=== PATIENT | female | born 1935 | race Caucasian/White ===

== ENCOUNTER 2016-05-29 15:40 | Outpatient (CLI) | END 2016-05-29 15:41 | LOC: AMBL 15:40 | PROVIDERS: ATTEND Emergency Medicine | DX: S09.90XA Unspecified injury of head, initial encounter (principal); W01.0XXA Fall on same level from slipping, tripping and stumbling without subsequent striking against object, initial encounter; Y92.000 Kitchen of unspecified non-institutional (private) residence as the place of occurrence of the external cause ==

== ENCOUNTER 2016-11-15 10:43 | Inpatient (IN) ==
[2016-11-15 11:21] VITALS: BMI 28.0
[2016-11-15 11:59] LABS: BASOPHILS % (AUTO) 0.5 % (0.0-3.0); EOSINOPHILS # (AUTO) 0.1 K/ul (0.0-0.7); HEMATOCRIT 37.8 % (37.0-47.0); HEMOGLOBIN 12.4 g/dl (12.0-16.0); IMMATURE GRANULOCYTE % (AUTO) 0.4 % (0.0-5.0); LYMPHOCYTES # (AUTO) 1.5 K/uL (0.60-3.4); LYMPHOCYTES % (AUTO) 17.9 (10.0-50.0); MEAN CORPUSCULAR HGB CONC 32.8 (31.8-35.4); MEAN CORPUSCULAR VOLUME 91.5 fl (81.0-99.0); MONOCYTES # (AUTO) 0.9 K/uL (0.4-2.0); MONOCYTES % (AUTO) 10.6 (0-10); NEUTROPHILS # (AUTO) 5.7 K/ul (2.0-6.9); NEUTROPHILS % (AUTO) 69.6; PLATELET COUNT 136 10^3/uL (140-440); RED BLOOD COUNT 4.13 10^6/ul (4.20-5.40); WHITE BLOOD COUNT 8.22 K/ul (4.6-10.2)
[2016-11-15] MEDS: DEXTROSE 5%-1/2NS IV SOLUTION 1,000 ML IV SCH (12:07)
[2016-11-15 13:09] LABS: ALBUMIN 3.1 g/dL (3.4-5.0); ALBUMIN/GLOBULIN RATIO 0.86; ANION GAP 13.6; BILIRUBIN,TOTAL 1.3 mg/dL (0.00-1.20); BUN/CREATININE RATIO 13.1; CALCIUM 9.3 mg/dL (8.2-10.2); CREATININE 1.45 mg/dL (0.60-1.30); POTASSIUM 3.6 mmol/L (3.5-5.10); TOTAL PROTEIN 6.7 g/dL (5.8-8.1)
[2016-11-15] MEDS: ZESTRIL PO SCH (13:42)
[2016-11-15] MEDS: DECADRON 4 MG/ML SDV IM SCH (13:42)
[2016-11-15] MEDS: TORADOL IVP SCH ×2 (13:42→23:29)
[2016-11-15] MEDS: LEVAQUIN 500 MG in PREMIX 100 ML D5W 1 BAG IV SCH (13:42)
--- NOTE | 2016-11-15 15:37 | DI ---
EXAM: Two views of the chest. History: Cough. Findings: Heart is enlarged. Hiatal hernia. No definite acute infiltrates. No appreciable pleural fluid and no pneumothorax. Atherosclerotic vascular calcifications. Severe compression deformity o f L1. Impression: 1. Cardiomegaly without evidence for pulmonary edema. 2. Hiatal hernia. 3. Severe compression deformity of L1.
--- NOTE | 2016-11-15 16:08 | DI ---
EXAM: Three views of the lumbar spine. History: Lower back pain. Findings: Osteopenia. Atherosclerotic vascular calcifications. 2 mm anterolisthesis of L3 on L4. 1 mm anterolisthesis of L4 on L5. Age indeterminate severe compression fracture of L1. Question mil d compression fracture of T12. Moderate degenerative disc disease at L4-L5. Mild to moderate disc s pace narrowing seen elsewhere. Cholecystectomy clips. Large amount colonic stool. Impression: 1. Age indeterminate compression fractures of T12 and L1. 2. Osteopenia. 3. Degenerative changes. 4. Large amount colonic stool
[2016-11-15 22:29] LABS: ADD URINE MICROSCOPIC YES; BILIRUBIN,URINE Negative (NEGATIVE); KETONES,URINE Negative (NEGATIVE); LEUKOCYTE ESTERASE ,URINE Negative (NEGATIVE); NITRITE,URINE Negative (NEGATIVE); PH,URINE 7.5 (5-9); PROTEIN,URINE Negative (NEGATIVE); URINE, BLOOD Trace-intact (NEGATIVE)
[2016-11-15] MEDS: NEURONTIN PO SCH (23:29)
[2016-11-16] MEDS: DEXTROSE 5%-1/2NS IV SOLUTION 1,000 ML IV SCH (01:41)
[2016-11-16] MEDS: PRILOSEC PO SCH (05:46)
[2016-11-16] MEDS: LASIX TAB PO SCH (05:46)
[2016-11-16] MEDS: SYNTHROID PO SCH (05:46)
[2016-11-16 06:13] LABS: ALBUMIN 3.3 g/dL (3.4-5.0); ALBUMIN/GLOBULIN RATIO 0.7; ANION GAP 18.6; BILIRUBIN,TOTAL 0.97 mg/dL (0.00-1.20); BUN/CREATININE RATIO 12.69; CALCIUM 9.8 mg/dL (8.2-10.2); CREATININE 1.26 mg/dL (0.60-1.30); POTASSIUM 4.6 mmol/L (3.5-5.10)
[2016-11-16 06:26] LABS: BASOPHILS % (AUTO) 0.3 % (0.0-3.0); EOSINOPHILS % (AUTO) 0.1 % (0.0-7.0); HEMOGLOBIN 14.2 g/dl (12.0-16.0); IMMATURE GRANULOCYTE % (AUTO) 0.6 % (0.0-5.0); LYMPHOCYTES # (AUTO) 1.1 K/uL (0.60-3.4); LYMPHOCYTES % (AUTO) 13.5 (10.0-50.0); MEAN CORPUSCULAR HEMOGLOBIN 30.5 pg (27.0-31.0); MEAN CORPUSCULAR HGB CONC 33.8 (31.8-35.4); MEAN CORPUSCULAR VOLUME 90.3 fl (81.0-99.0); MONOCYTES # (AUTO) 0.7 K/uL (0.4-2.0); MONOCYTES % (AUTO) 9.3 (0-10); NEUTROPHILS % (AUTO) 76.2; PLATELET COUNT 151 10^3/uL (140-440); RED BLOOD COUNT 4.65 10^6/ul (4.20-5.40); WHITE BLOOD COUNT 7.93 K/ul (4.6-10.2)
[2016-11-16] MEDS ORDERED: EFFEXOR PO SCH (09:00)
[2016-11-16] MEDS ORDERED: NON-FORMULARY MEDICATION (Lisinopril [Zestril] 2.5 MG) PO SCH ×22 (09:00)
[2016-11-16] MEDS ORDERED: NON-FORMULARY MEDICATION (Cholecalciferol (Vitamin D3) [Vitamin D3] 5,000 UNITS) PO SCH (09:00)
[2016-11-16] MEDS ORDERED: NON-FORMULARY MEDICATION (Multivitamin [Multi-Vitamin Daily] 1 TAB) PO SCH (09:00)
[2016-11-16] MEDS ORDERED: NON-FORMULARY MEDICATION (Venlafaxine Hcl 75 MG) PO SCH (09:00)
[2016-11-16] MEDS: DECADRON 4 MG/ML SDV IM SCH (09:16)
[2016-11-16] MEDS: [UNRECOGNIZED DRUG - OTHER] PO SCH (09:16)
[2016-11-16] MEDS: EFFEXOR XR PO SCH (09:17)
[2016-11-16] MEDS: VITAMIN D PO SCH (09:18)
[2016-11-16] MEDS: MULTIVITAMIN PO SCH (09:18)
[2016-11-16] MEDS: ULTRAM PO SCH (09:20)
[2016-11-16] MEDS: NEURONTIN PO SCH ×2 (09:20→20:26)
[2016-11-16] MEDS: ZESTRIL PO SCH (09:20)
[2016-11-16] MEDS: TRADJENTA PO SCH (09:20)
[2016-11-16] MEDS: TORADOL IVP SCH ×2 (09:21→20:27)
[2016-11-16] MEDS ORDERED: LEVAQUIN 100 ML IV ONE (09:29)
[2016-11-16] MEDS: LEVAQUIN 500 MG in PREMIX 100 ML D5W 1 BAG IV SCH (09:45)
[2016-11-16] MEDS: HUMULIN R SUBCUT PRN ×3 (11:29→20:25)
[2016-11-17 05:22] LABS: BASOPHILS % (AUTO) 0.2 % (0.0-3.0); EOSINOPHILS # (AUTO) 0.1 K/ul (0.0-0.7); EOSINOPHILS % (AUTO) 0.4 % (0.0-7.0); HEMATOCRIT 37.8 % (37.0-47.0); HEMOGLOBIN 12.8 g/dl (12.0-16.0); IMMATURE GRANULOCYTE % (AUTO) 0.6 % (0.0-5.0); LYMPHOCYTES # (AUTO) 2.1 K/uL (0.60-3.4); LYMPHOCYTES % (AUTO) 18.9 (10.0-50.0); MEAN CORPUSCULAR HEMOGLOBIN 30.3 pg (27.0-31.0); MEAN CORPUSCULAR HGB CONC 33.9 (31.8-35.4); MEAN CORPUSCULAR VOLUME 89.4 fl (81.0-99.0); MONOCYTES # (AUTO) 1.1 K/uL (0.4-2.0); MONOCYTES % (AUTO) 9.8 (0-10); NEUTROPHILS % (AUTO) 70.1; PLATELET COUNT 155 10^3/uL (140-440); RED BLOOD COUNT 4.23 10^6/ul (4.20-5.40); WHITE BLOOD COUNT 11.35 K/ul (4.6-10.2)
[2016-11-17 05:54] LABS: ALBUMIN/GLOBULIN RATIO 0.86; ANION GAP 14.6; BILIRUBIN,TOTAL 0.87 mg/dL (0.00-1.20); BUN/CREATININE RATIO 17.64; CALCIUM 10.6 mg/dL (8.2-10.2); CREATININE 1.36 mg/dL (0.60-1.30); POTASSIUM 3.6 mmol/L (3.5-5.10); TOTAL PROTEIN 6.5 g/dL (5.8-8.1)
[2016-11-17] MEDS: PRILOSEC PO SCH (06:10)
[2016-11-17] MEDS: SYNTHROID PO SCH (06:10)
[2016-11-17] MEDS: LASIX TAB PO SCH (06:10)
[2016-11-17] MEDS: HUMULIN R SUBCUT PRN ×4 (06:40→20:37)
[2016-11-17] MEDS: LEVAQUIN 500 MG in PREMIX 100 ML D5W 1 BAG IV SCH (08:55)
[2016-11-17] MEDS: NEURONTIN PO SCH ×2 (08:55→20:31)
[2016-11-17] MEDS: TRADJENTA PO SCH (08:55)
[2016-11-17] MEDS: ULTRAM PO SCH (08:55)
[2016-11-17] MEDS: EFFEXOR XR PO SCH (08:56)
[2016-11-17] MEDS: MULTIVITAMIN PO SCH (08:56)
[2016-11-17] MEDS: ZESTRIL PO SCH (08:56)
[2016-11-17] MEDS: VITAMIN D PO SCH (08:56)
[2016-11-17] MEDS: TORADOL IVP SCH ×2 (08:56→20:30)
[2016-11-17] MEDS: DECADRON 4 MG/ML SDV IM SCH (08:57)
[2016-11-17] MEDS: [UNRECOGNIZED DRUG - OTHER] PO SCH (10:33)
[2016-11-17] MEDS: NAMENDA PO SCH (20:31)
[2016-11-18 05:00] LABS: BASOPHILS % (AUTO) 0.3 % (0.0-3.0); EOSINOPHILS % (AUTO) 0.2 % (0.0-7.0); HEMOGLOBIN 12.4 g/dl (12.0-16.0); IMMATURE GRANULOCYTE % (AUTO) 0.8 % (0.0-5.0); LYMPHOCYTES # (AUTO) 2.4 K/uL (0.60-3.4); LYMPHOCYTES % (AUTO) 20.2 (10.0-50.0); MEAN CORPUSCULAR HEMOGLOBIN 29.8 pg (27.0-31.0); MEAN CORPUSCULAR HGB CONC 33.5 (31.8-35.4); MEAN CORPUSCULAR VOLUME 88.9 fl (81.0-99.0); MONOCYTES # (AUTO) 1.1 K/uL (0.4-2.0); MONOCYTES % (AUTO) 9.4 (0-10); NEUTROPHILS # (AUTO) 8.1 K/ul (2.0-6.9); NEUTROPHILS % (AUTO) 69.1; PLATELET COUNT 157 10^3/uL (140-440); RED BLOOD COUNT 4.16 10^6/ul (4.20-5.40); WHITE BLOOD COUNT 11.71 K/ul (4.6-10.2)
[2016-11-18 05:21] LABS: ALBUMIN 2.9 g/dL (3.4-5.0); ALBUMIN/GLOBULIN RATIO 0.78; ANION GAP 14.9; BILIRUBIN,TOTAL 0.68 mg/dL (0.00-1.20); BUN/CREATININE RATIO 22.43; CALCIUM 10.3 mg/dL (8.2-10.2); CREATININE 1.56 mg/dL (0.60-1.30); POTASSIUM 3.9 mmol/L (3.5-5.10); TOTAL PROTEIN 6.6 g/dL (5.8-8.1)
[2016-11-18] MEDS: LASIX TAB PO SCH (06:13)
[2016-11-18] MEDS: PRILOSEC PO SCH (06:13)
[2016-11-18] MEDS: SYNTHROID PO SCH (06:13)
[2016-11-18] MEDS: HUMULIN R SUBCUT PRN ×4 (06:14→21:45)
[2016-11-18] MEDS: [UNRECOGNIZED DRUG - OTHER] PO SCH (08:06)
[2016-11-18] MEDS: LEVAQUIN 500 MG in PREMIX 100 ML D5W 1 BAG IV SCH (08:06)
[2016-11-18] MEDS: ZESTRIL PO SCH (08:07)
[2016-11-18] MEDS: ARICEPT PO SCH (08:07)
[2016-11-18] MEDS: ULTRAM PO SCH (08:07)
[2016-11-18] MEDS: DECADRON 4 MG/ML SDV IM SCH (08:08)
[2016-11-18] MEDS: VITAMIN D PO SCH (08:08)
[2016-11-18] MEDS: TRADJENTA PO SCH (08:08)
[2016-11-18] MEDS: NEURONTIN PO SCH ×2 (08:08→20:12)
[2016-11-18] MEDS: EFFEXOR XR PO SCH (08:08)
[2016-11-18] MEDS: TORADOL IVP SCH ×2 (08:08→20:36)
[2016-11-18] MEDS: MULTIVITAMIN PO SCH (08:08)
--- NOTE | 2016-11-18 12:48 | MRI ---
EXAM: MRI brain without IV contrast. DATE: 18 November 2016. HISTORY: Dementia. TECHNIQUE: Sagittal T1W, axial T2W, axial FLAIR, axial T1W, axial DWI, and coronal T2W GRE sequences of the brain were obtained using 1.2 Casi magnet. No IV contrast. COMPARISON: None. FINDINGS: The ventricles, cisterns, and sulci are commensurately enlarged due to involutional change . No No midline shift, mass effect or abnormal extra-axial fluid collection is apparent. No acute infarct, hemorrhage or neoplasm is identified. Small/moderate confluent rim of T2W/FLAIR hyperintens ity is observed in the white matter abutting each lateral ventricle. Multiple 2-12 mm, T2W/FLAIR emelyn ght foci are scattered within the weber radiata, centrum semiovale, and subcortical white matter renetta aterally. A T2W bright, FLAIR/T1W dark, 7 x 2.5 mm focus in the left frontal centrum semiovale is co nsistent with an old infarct. Similar 4 x 1.5 mm focus is seen within the posterior aspect of the ri ght putamen. Prominent Virchow-Panda spaces are seen within the subcortical white matter of both cer ebral hemispheres. The aguilar - white matter differentiation is normal. Several tiny areas of slight FLAIR hyperintensity within the gaby are noted on axial images. The 7th/8th cranial nerve complexes, cerebellopontine angles, and visible cervical spinal cord are normal. There is no cerebellar tonsil lar ectopia. The pituitary gland is normal in size. A T1W bright, 4 x 4.6 mm focus observed at the superior margin of the pituitary gland near the infundibulum on the sagittal image #11 is an unexpect ed finding. Corpus callosum is normal in size and configuration. Flow voids are present in the noelle r intracranial arteries and in the dural venous sinuses. No aneurysm, AVM or dural venous sinus thro mbosis is apparent. Appearance of the lens of each eye suggests prior cataract surgery. No other or bit abnormality is identified. There appears to be limited pneumatization of mastoid air cells bilat erally. The pneumatized mastoid air cells are unremarkable. There is no acute sinusitis. Bilateral parotid gland fatty infiltration is demonstrated. No neck mass or lymphadenopathy is detected. No calvarial neoplasm or acute fracture is evident. A 1.2 [address]lux[address] of CT relative to C3 is evident. IMPRESSIONS: Unexpected findin. Finding suspicious for pituitary / infundibulum lesion - not well visualized or fully characterized. Recommend dedicated pituitary MRI. 2. No acute infarct, hemorrhage, intra-axial mass or hydrocephalus. 3. 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 4. Mild/moderate cerebral and mild cerebellar atrophy. 5. Marked supratentorial and minor brainstem white matter changes - likely small vessel disease or c hronic hypertensive encephalopathy. Minor C2-3 subluxation.
[2016-11-18] MEDS: NAMENDA PO SCH (20:12)
[2016-11-19] MEDS: DEXTROSE 5%-1/2NS IV SOLUTION 1,000 ML IV SCH ×4 (03:06→21:16)
[2016-11-19 05:30] LABS: BASOPHILS % (AUTO) 0.3 % (0.0-3.0); EOSINOPHILS # (AUTO) 0.1 K/ul (0.0-0.7); EOSINOPHILS % (AUTO) 0.6 % (0.0-7.0); HEMATOCRIT 36.7 % (37.0-47.0); HEMOGLOBIN 12.3 g/dl (12.0-16.0); IMMATURE GRANULOCYTE % (AUTO) 0.8 % (0.0-5.0); LYMPHOCYTES # (AUTO) 2.4 K/uL (0.60-3.4); LYMPHOCYTES % (AUTO) 20.7 (10.0-50.0); MEAN CORPUSCULAR HGB CONC 33.5 (31.8-35.4); MEAN CORPUSCULAR VOLUME 89.5 fl (81.0-99.0); MONOCYTES # (AUTO) 1.2 K/uL (0.4-2.0); MONOCYTES % (AUTO) 10.7 (0-10); NEUTROPHILS # (AUTO) 7.7 K/ul (2.0-6.9); NEUTROPHILS % (AUTO) 66.9; PLATELET COUNT 152 10^3/uL (140-440); WHITE BLOOD COUNT 11.52 K/ul (4.6-10.2)
[2016-11-19] MEDS: SYNTHROID PO SCH (05:47)
[2016-11-19] MEDS: LASIX TAB PO SCH (05:48)
[2016-11-19] MEDS: PRILOSEC PO SCH (05:48)
[2016-11-19 05:53] LABS: ALBUMIN 2.7 g/dL (3.4-5.0); ALBUMIN/GLOBULIN RATIO 0.96; ANION GAP 11.4; BILIRUBIN,TOTAL 0.71 mg/dL (0.00-1.20); BUN/CREATININE RATIO 22.36; CALCIUM 9.1 mg/dL (8.2-10.2); CREATININE 1.52 mg/dL (0.60-1.30); POTASSIUM 3.4 mmol/L (3.5-5.10); TOTAL PROTEIN 5.5 g/dL (5.8-8.1)
[2016-11-19] MEDS ORDERED: K-DUR PO STA (08:08)
[2016-11-19] MEDS: LEVAQUIN 500 MG in PREMIX 100 ML D5W 1 BAG IV SCH (09:10)
[2016-11-19] MEDS: VITAMIN D PO SCH (09:10)
[2016-11-19] MEDS: ULTRAM PO SCH (09:10)
[2016-11-19] MEDS: MULTIVITAMIN PO SCH (09:11)
[2016-11-19] MEDS: TRADJENTA PO SCH (09:11)
[2016-11-19] MEDS: ZESTRIL PO SCH (09:11)
[2016-11-19] MEDS: ARICEPT PO SCH (09:11)
[2016-11-19] MEDS: EFFEXOR XR PO SCH (09:11)
[2016-11-19] MEDS: TORADOL IVP SCH ×2 (09:12→20:07)
[2016-11-19] MEDS: NEURONTIN PO SCH ×2 (09:12→20:11)
[2016-11-19] MEDS: DECADRON 4 MG/ML SDV IM SCH (09:12)
[2016-11-19] MEDS: [UNRECOGNIZED DRUG - OTHER] PO SCH (09:13)
[2016-11-19] MEDS: HUMULIN R SUBCUT PRN ×3 (11:38→20:10)
--- NOTE | 2016-11-19 13:46 | PCM.PROG ---
Attending Provider: ATTENDING PROVIDER: Dr. ALEXANDRO DUMONT This patient is seen with Essence Carlos, Nurse Practitioner DATE OF SERVICE: 11/19/16 SUBJECTIVE: This 80 year old WHITE/ F was hospitalized 11/15/16. The patient is sitting in chair, is oriented to person this morning. She slept well last night and is scheduled to have MRI dedicated to pituitary today pending kidney function. The patient's son is in the room. REVIEW OF SYSTEMS: CONSTITUTIONAL: Generalized weakness. No night sweats. No fever or chills. HEENT: Eyes: No visual changes. No eye pain. No eye discharge. ENT: No runny nose. No epistaxis. No sinus pain. No odynophagia. No congestion. RESPIRATORY: No cough, no congestion. No hemoptysis. No shortness of breath. CARDIOVASCULAR: No angina symptoms. No CHF symptoms. No atypical chest pain for CAD. No palpitations. No orthopnea.. GASTROINTESTINAL: No abdominal pain. No nausea or vomiting. No diarrhea or constipation. No hematemesis. No hematochezia. GENITOURINARY: No urgency. No frequency. No dysuria. No hematuria. No obstructive symptoms. No discharge. No pain. No significant abnormal bleeding. MUSCULOSKELETAL: No musculoskeletal pain; no joint swelling. NEUROLOGICAL: Awake, alert, oriented to person with confusion. No headache. No neck pain. No syncope. No seizures. No dizziness. PSYCHIATRIC: Not anxious. No depression. No suicidal thoughts. No homicidal thoughts. SKIN: No rash. No lesions. No wounds. ENDOCRINE: No unexplained weight loss. No weight gain. HEMATOLOGIC/LYMPHATIC: No anemia. No purpura. No petechiae. No prolonged or excessive bleeding. No palpable lymph nodes. PHYSICAL EXAMINATION: GENERAL: The patient is awake, alert and oriented to person but confused, sitting in chair in no distress. VITAL SIGNS: Temperature 96.8 F, Pulse 62, Respiratory Rate 20, BP 163/87, Pulse Ox 94% HEENT: Head normocephalic, atraumatic. Eyes: Extraocular muscles are intact. Pupils are equal, round and reactive to light and accommodation. Ears: No lesions. Nose appeared normal. Throat: No exudate or erythema. NECK: Supple. No JVD, no carotid bruit. No lymphadenopathy or thyromegaly. LUNGS: Diminished breath sounds bilaterally. No edema. Clear to auscultation. Percussion note normal. Chest symmetrical. HEART: S1, S2, no S3. No murmurs. No cyanosis or clubbing. No ascites. Pulses: Dorsalis pedis and posterior tibial pulses +1 to +2 both sides. ABDOMEN: Soft. Non-tender. Bowel sounds active. No CVA tenderness. No mass felt. EXTREMITIES: Chronic discoloration of lower extremities. No edema. Full range of motion of all extremities, equal. NEUROLOGIC: No focal deficit. Cranial nerves II through XII are grossly intact. No headache, no double vision or headache. SKIN: Not dry. Intact. Turgor-normal. LYMPHATIC: No palpable lymph nodes/no lymphedema. MUSCULOSKELETAL: Normal joints with no swelling. Muscle tone is normal. LAB REVIEW: 11/19/16 04:30 11/19/16 04:30 11/19/16 04:30: Sodium 139, Potassium 3.4 L, Chloride 103, Carbon Dioxide 28, Anion Gap 11.4, BUN 34 H, Creatinine 1.52 H, Estimated GFR (MDRD) 33.00, BUN/ Creatinine Ratio 22.36, Glucose 131 H, Calcium 9.1, Total Bilirubin 0.71, AST 16 , ALT 14, Alkaline Phosphatase 73, Total Protein 5.5 L, Albumin 2.7 L, Globulin 2.8, Albumin/Globulin Ratio 0.96 11/19/16 04:30: WBC 11.52 H, RBC 4.10 L, Hgb 12.3, Hct 36.7 L, MCV 89.5, MCH 30.0, MCHC 33.5, RDW Coeff of Nacho 13.9, Plt Count 152, Immature Gran % (Auto) 0.8, Neut % (Auto) 66.9, Lymph % (Auto) 20.7, Dewitt % (Auto) 10.7 H, Eos % (Auto ) 0.6, Baso % (Auto) 0.3, Immature Gran # (Auto) 0.1, Neut # 7.7 H, Lymph # 2.4 , Dewitt # 1.2, Eos # 0.1, Baso # 0.0 ASSESSMENT: 1. Hypokalemia 2. Abnormal MRI need further investigation of pituitary gland 3. Alzheimer's dementia 4. Chronic kidney disease PLAN: 1. Potassium 40 mg p.o. today and 20 mg daily after that 2. Possible MRI of pituitary today based on kidney function Plan and coordination of the patient's care discussed in the presence of Assembler Musical Equipment and nurse. CONDITION: Stable SCRIBED BY: SHELBI LAZO Kier Hand scribed while in presence of service performed by Dr. Dumont/Essence Carlos APRN on 11/19/16 ([id number])
[2016-11-19] MEDS: NAMENDA PO SCH (20:11)
[2016-11-20] MEDS: DEXTROSE 5%-1/2NS IV SOLUTION 1,000 ML IV SCH (03:24)
[2016-11-20 05:20] LABS: BASOPHILS % (AUTO) 0.3 % (0.0-3.0); EOSINOPHILS % (AUTO) 0.3 % (0.0-7.0); HEMATOCRIT 40.2 % (37.0-47.0); HEMOGLOBIN 13.3 g/dl (12.0-16.0); LYMPHOCYTES # (AUTO) 1.9 K/uL (0.60-3.4); MEAN CORPUSCULAR HEMOGLOBIN 29.8 pg (27.0-31.0); MEAN CORPUSCULAR HGB CONC 33.1 (31.8-35.4); MEAN CORPUSCULAR VOLUME 90.1 fl (81.0-99.0); MONOCYTES # (AUTO) 0.9 K/uL (0.4-2.0); MONOCYTES % (AUTO) 8.9 (0-10); NEUTROPHILS # (AUTO) 7.3 K/ul (2.0-6.9); NEUTROPHILS % (AUTO) 71.5; PLATELET COUNT 155 10^3/uL (140-440); RED BLOOD COUNT 4.46 10^6/ul (4.20-5.40); WHITE BLOOD COUNT 10.26 K/ul (4.6-10.2)
[2016-11-20] MEDS: PRILOSEC PO SCH (05:44)
[2016-11-20] MEDS: SYNTHROID PO SCH (05:44)
[2016-11-20] MEDS: LASIX TAB PO SCH (05:44)
[2016-11-20 05:45] LABS: ALBUMIN 2.9 g/dL (3.4-5.0); ALBUMIN/GLOBULIN RATIO 0.91; ANION GAP 14.8; BILIRUBIN,TOTAL 0.67 mg/dL (0.00-1.20); BUN/CREATININE RATIO 17.82; CALCIUM 9.4 mg/dL (8.2-10.2); CREATININE 1.29 mg/dL (0.60-1.30); POTASSIUM 3.8 mmol/L (3.5-5.10); TOTAL PROTEIN 6.1 g/dL (5.8-8.1)
[2016-11-20] MEDS: HUMULIN R SUBCUT PRN ×4 (05:58→21:20)
[2016-11-20] MEDS ORDERED: DEXTROSE 5%-1/2NS IV SOLUTION 1,000 ML IV SCH ×2 (08:08→18:42)
[2016-11-20] MEDS: [UNRECOGNIZED DRUG - OTHER] PO SCH (08:26)
[2016-11-20] MEDS: ARICEPT PO SCH (08:34)
[2016-11-20] MEDS: K-DUR PO SCH (08:35)
[2016-11-20] MEDS: ZESTRIL PO SCH (08:36)
[2016-11-20] MEDS: ULTRAM PO SCH (08:37)
[2016-11-20] MEDS: MULTIVITAMIN PO SCH (08:37)
[2016-11-20] MEDS: EFFEXOR XR PO SCH (08:37)
[2016-11-20] MEDS: VITAMIN D PO SCH (08:37)
[2016-11-20] MEDS: TRADJENTA PO SCH (08:37)
[2016-11-20] MEDS: NEURONTIN PO SCH ×2 (08:37→21:22)
[2016-11-20] MEDS: DECADRON 4 MG/ML SDV IM SCH (08:40)
[2016-11-20] MEDS: TORADOL IVP SCH ×2 (08:40→21:20)
--- NOTE | 2016-11-20 11:15 | PCM.PROG ---
Attending Provider: ATTENDING PROVIDER: Dr. ALEXANDRO DUMONT DATE OF SERVICE: 11/20/16 SUBJECTIVE: This 80 year old WHITE/ F was hospitalized 11/15/16. The patient is sitting on side of bed. The son, who is the POA for vazquez, Omid, is here and discussed the case with he and the patient. The patient seems to be oriented to place and person and in no distress. Denies back pain at the present time and has been able to ambulate with the assistance of a walker. Mental status is stable. REVIEW OF SYSTEMS: CONSTITUTIONAL: No night sweats. No fatigue, malaise, lethargy. No fever or chills. HEENT: Eyes: No visual changes. No eye pain. No eye discharge. ENT: No runny nose. No epistaxis. No sinus pain. No odynophagia. No congestion. RESPIRATORY: No cough, no congestion. No hemoptysis. No shortness of breath. CARDIOVASCULAR: No angina symptoms. No CHF symptoms. No atypical chest pain for CAD. No palpitations. No orthopnea.. GASTROINTESTINAL: No abdominal pain. No nausea or vomiting. No diarrhea or constipation. No hematemesis. No hematochezia. GENITOURINARY: No urgency. No frequency. No dysuria. No hematuria. No obstructive symptoms. No discharge. No pain. No significant abnormal bleeding. MUSCULOSKELETAL: No musculoskeletal pain; no joint swelling. NEUROLOGICAL: Awake, alert, oriented to place and person. No headache. No neck pain. No syncope. No seizures. No dizziness. PSYCHIATRIC: Not anxious. No depression. No suicidal thoughts. No homicidal thoughts. SKIN: No rash. No lesions. No wounds. ENDOCRINE: No unexplained weight loss. No weight gain. HEMATOLOGIC/LYMPHATIC: No anemia. No purpura. No petechiae. No prolonged or excessive bleeding. No palpable lymph nodes. PHYSICAL EXAMINATION: GENERAL: The patient is awake, alert and oriented, sitting in bed in no distress. VITAL SIGNS: Temperature 97.0 F, Pulse 69, Respiratory Rate 16, BP 158/93, Pulse Ox 96% HEENT: Head normocephalic, atraumatic. Eyes: Extraocular muscles are intact. Pupils are equal, round and reactive to light and accommodation. Ears: No lesions. Nose appeared normal. Throat: No exudate or erythema. NECK: Supple. No JVD, no carotid bruit. No lymphadenopathy or thyromegaly. LUNGS: Clear to auscultation. Percussion note normal. Chest symmetrical. HEART: S1, S2, no S3. No murmurs. No cyanosis or clubbing. No ascites. Pulses: Dorsalis pedis and posterior tibial pulses +1 to +2 both sides. ABDOMEN: Soft. Non-tender. Bowel sounds active. No CVA tenderness. No mass felt. EXTREMITIES: No edema. Full range of motion of all extremities, equal. NEUROLOGIC: No focal deficit. Cranial nerves II through XII are grossly intact. No headache, no double vision or headache. SKIN: Not dry. Intact. Turgor-normal. LYMPHATIC: No palpable lymph nodes/no lymphedema. MUSCULOSKELETAL: Normal joints with no swelling. Muscle tone is normal. LAB REVIEW: 11/20/16 04:30 11/20/16 04:30 11/20/16 04:30: Sodium 140, Potassium 3.8, Chloride 105, Carbon Dioxide 24, Anion Gap 14.8, BUN 23 H, Creatinine 1.29, Estimated GFR (MDRD) 40.00, BUN/ Creatinine Ratio 17.82, Glucose 214 H D, Calcium 9.4, Total Bilirubin 0.67, AST 16, ALT 15, Alkaline Phosphatase 82, Total Protein 6.1, Albumin 2.9 L, Globulin 3.2, Albumin/Globulin Ratio 0.91 11/20/16 04:30: WBC 10.26 H, RBC 4.46, Hgb 13.3, Hct 40.2, MCV 90.1, MCH 29.8, MCHC 33.1, RDW Coeff of Nacho 13.6, Plt Count 155, Immature Gran % (Auto) 1.0, Neut % (Auto) 71.5, Lymph % (Auto) 18.0, Mclennan % (Auto) 8.9, Eos % (Auto) 0.3, Baso % (Auto) 0.3, Immature Gran # (Auto) 0.1, Neut # 7.3 H, Lymph # 1.9, Mclennan # 0.9, Eos # 0.0, Baso # 0.0 ASSESSMENT: 1. Back pain 2. Confusion seems better. The patient is on small dose of Aricept and Namenda , which she is able to tolerate well and seems to have a positive effect on her function. 3. Abnormal CT scan related to pituitary gland and is going to be checked by MRI. 4. No signs of any hormonal disturbance in this 80-year-old so will see what report says. PLAN: 1. Decrease IV fluids to 75 mL/hr. 2. Will do MRI of brain today. Plan and coordination of the patient's care discussed in the presence of Editorial Specialist and nurse. CONDITION: Stable SCRIBED BY: SHELBI LAZO Bronze Plater scribed while in presence of service performed by Dr. ALEXANDRO DUMONT on 11/20/16 ([id number])
--- NOTE | 2016-11-20 15:15 | MRI ---
EXAM: MRI brain (pituitary) without and with IV contrast. DATE: 11/20/2016. HISTORY: Pituitary abnormality on recent MRI. TECHNIQUE: Sagittal T1W, axial T1W pre and postcontrast of the brain were obtained using 1.2 Casi m agnet. Additional thin slice sagittal and coronal T1W pre and postcontrast and coronal T2W thin-slic e images centered on the pituitary fossa were obtained. Note: This is not the [facility] s [facility] pituitary protocol. CONTRAST: Omniscan - 8 ml IV. COMPARISON: MRI brain 18 November 2016. FINDINGS: The ventricles, cisterns, sulci are commensurately enlarged due to involutional change. N o midline shift, mass effect, or abnormal extra-axial fluid collection is observed. Old right putame n and right frontal centrum semiovale infarcts are better seen on recent prior brain MRI. No definit nilesh acute infarct, hemorrhage or enhancing intra-axial neoplasm is detected. No abnormal enhancement is seen within the brain, meninges, or dura. Periventricular white matter T2W/FLAIR hyperintensity is similar to 18 November 2016. The aguilar - white matter differentiation is grossly normal. No migr ation or diverticulation abnormality is apparent. No mesial temporal sclerosis is detected. The ida nth/eighth cranial nerve complexes, cerebellopontine angles, and visible cervical spinal cord are nor mal. There is no cerebellar tonsillar ectopia. Corpus callosum is normal in size and configuration. No aneurysm, AVM, or dural venous sinus thrombosis is visible. No orbit abnormality is identified. There is limited pneumatization of mastoid air cells bilaterally. The pneumatized mastoid air cell s are unremarkable. There is no acute sinusitis. Bilateral parotid gland fatty infiltration is rede monstrated. No neck mass or lymphadenopathy is detected. No calvarial neoplasm or acute fracture is evident. Thin slice images centered on the sella reveal a normal size and configuration of the pituitary gland . The precontrast images reveal a T2W intermediate signal, T1W bright, 3.7 x 3.5 x 4.7 mm focus at t he distal pituitary infundibulum vs arising from the pituitary itself. Postcontrast images reveal no significant enhancement within this structure. The pituitary infundibulum is midline. The optic ch iasm and optic nerves appear normal. The cavernous sinus and Meckel's cave are normal bilaterally. IMPRESSIONS: 1. No pituitary infundibulum T1W bright, T1W intermediate signal lesion without significant enhancem ent. DDX: Cyst with proteinaceous fluid, hemorrhage, other benign neoplasm. Lack of enhancement sig nificantly reduces the likelihood of malignancy. A 6-month follow-up recommended to exclude a growin g lesion. 2. No acute infarct, hemorrhage, intra-axial mass, or hydrocephalus. 3. 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 4. Mild/moderate cerebral and mild cerebellar atrophy. 5. Moderate/marked supratentorial small vessel disease vs chronic hypertensive encephalopathy.
--- NOTE | 2016-11-20 21:05 | ED.PDOC ---
Procedures - IV/Art Line Insertion Location: lt hand Type of Line: Peripheral IV Invasive Line/IV Catheter Gauge: 22 Number of Attempts: 1 Blood Return Positive: Yes Invasive Line/IV Flushes Without Difficulty: Yes Conscious Sedation - Pre-op Assessment Weight: 179 lb
[2016-11-20] MEDS: NAMENDA PO SCH (21:22)
[2016-11-21 05:37] LABS: ALBUMIN 2.7 g/dL (3.4-5.0); ALBUMIN/GLOBULIN RATIO 0.9; ANION GAP 13.7; BILIRUBIN,TOTAL 0.61 mg/dL (0.00-1.20); BUN/CREATININE RATIO 16.96; CALCIUM 9.1 mg/dL (8.2-10.2); CREATININE 1.12 mg/dL (0.60-1.30); POTASSIUM 3.7 mmol/L (3.5-5.10); TOTAL PROTEIN 5.7 g/dL (5.8-8.1)
[2016-11-21 05:56] LABS: BASOPHILS % (AUTO) 0.3 % (0.0-3.0); EOSINOPHILS # (AUTO) 0.1 K/ul (0.0-0.7); EOSINOPHILS % (AUTO) 0.5 % (0.0-7.0); HEMATOCRIT 37.8 % (37.0-47.0); HEMOGLOBIN 12.7 g/dl (12.0-16.0); IMMATURE GRANULOCYTE % (AUTO) 1.3 % (0.0-5.0); LYMPHOCYTES % (AUTO) 16.8 (10.0-50.0); MEAN CORPUSCULAR HEMOGLOBIN 30.2 pg (27.0-31.0); MEAN CORPUSCULAR HGB CONC 33.6 (31.8-35.4); MONOCYTES # (AUTO) 1.1 K/uL (0.4-2.0); MONOCYTES % (AUTO) 9.2 (0-10); NEUTROPHILS # (AUTO) 8.4 K/ul (2.0-6.9); NEUTROPHILS % (AUTO) 71.9; PLATELET COUNT 145 10^3/uL (140-440)
[2016-11-21] MEDS: PRILOSEC PO SCH (06:17)
[2016-11-21] MEDS: LASIX TAB PO SCH (06:18)
[2016-11-21] MEDS: SYNTHROID PO SCH (06:18)
[2016-11-21] MEDS: HUMULIN R SUBCUT PRN (06:18)
[2016-11-21] MEDS ORDERED: ZESTRIL PO SCH (08:27)
[2016-11-21] MEDS: VITAMIN D PO SCH (08:53)
[2016-11-21] MEDS: TRADJENTA PO SCH (08:54)
[2016-11-21] MEDS: EFFEXOR XR PO SCH (08:55)
[2016-11-21] MEDS: ARICEPT PO SCH (08:55)
[2016-11-21] MEDS: ULTRAM PO SCH (08:55)
[2016-11-21] MEDS: K-DUR PO SCH (08:55)
[2016-11-21] MEDS: NEURONTIN PO SCH (08:55)
[2016-11-21] MEDS: MULTIVITAMIN PO SCH (08:56)
[2016-11-21] MEDS: [UNRECOGNIZED DRUG - OTHER] PO SCH (08:57)
[2016-11-21] MEDS: TORADOL IVP SCH (08:58)
--- NOTE | 2016-11-21 09:44 | PN ---
DATE OF SERVICE: 11/19/16 SUBJECTIVE: The patient had an MRI done to see her pituitary and infundibulum reports pending. The patient's creatinine 1.5, BUN 34. The patient is on IV fluids. The patient is being given Potassium supplements. The patient is oriented to time, place and person. CONDITION: Stable The patient was seen and examined with Nurse Practitioner. TIME SPENT: More than 30 minutes. Plan and coordination of the patient's care discussed in the presence of nurse. KALPANA
--- NOTE | 2016-11-21 09:54 | PCM.PROG ---
Attending Provider: ATTENDING PROVIDER: Dr. ALEXANDRO DUMONT This patient is seen with Essence Carlos, Nurse Practitioner. DATE OF SERVICE: 11/21/16 SUBJECTIVE: This 80 year old WHITE/ F was hospitalized 11/15/16. The patient is lying in bed, says she slept well; is ready to go home. MRI of the pituitary yesterday was normal. Dementia with owner's discussed with son. The patient has been up and about and eating well. REVIEW OF SYSTEMS: CONSTITUTIONAL: No night sweats. No fatigue, malaise, lethargy. No fever or chills. HEENT: Eyes: No visual changes. No eye pain. No eye discharge. ENT: No runny nose. No epistaxis. No sinus pain. No odynophagia. No congestion. RESPIRATORY: No cough, no congestion. No hemoptysis. No shortness of breath. CARDIOVASCULAR: No angina symptoms. No CHF symptoms. No atypical chest pain for CAD. No palpitations. No orthopnea.. GASTROINTESTINAL: No abdominal pain. No nausea or vomiting. No diarrhea or constipation. No hematemesis. No hematochezia. GENITOURINARY: No urgency. No frequency. No dysuria. No hematuria. No obstructive symptoms. No discharge. No pain. No significant abnormal bleeding. MUSCULOSKELETAL: No musculoskeletal pain; no joint swelling. NEUROLOGICAL: Awake, alert, has bouts of confusion but today is oriented to person and place. No headache. No neck pain. No syncope. No seizures. No dizziness. PSYCHIATRIC: Not anxious. No depression. No suicidal thoughts. No homicidal thoughts. SKIN: No rash. No lesions. No wounds. ENDOCRINE: No unexplained weight loss. No weight gain. HEMATOLOGIC/LYMPHATIC: No anemia. No purpura. No petechiae. No prolonged or excessive bleeding. No palpable lymph nodes. PHYSICAL EXAMINATION: GENERAL: The patient is awake, alert and oriented to person and place, lying in bed in no distress. VITAL SIGNS: Temperature 97.3 F, Pulse 67, Respiratory Rate 16, BP 162/88, Pulse Ox 98% HEENT: Head normocephalic, atraumatic. Eyes: Extraocular muscles are intact. Pupils are equal, round and reactive to light and accommodation. Ears: No lesions. Nose appeared normal. Throat: No exudate or erythema. NECK: Supple. No JVD, no carotid bruit. No lymphadenopathy or thyromegaly. LUNGS: Diminished breath sounds bilaterally. Clear to auscultation. Percussion note normal. Chest symmetrical. HEART: S1, S2, no S3. No murmurs. No cyanosis or clubbing. No ascites. Pulses: Dorsalis pedis and posterior tibial pulses +1 to +2 both sides. ABDOMEN: Soft. Non-tender. Bowel sounds active. No CVA tenderness. No mass felt. EXTREMITIES: Chronic discoloration of lower extremities. No edema. Full range of motion of all extremities, equal. NEUROLOGIC: No focal deficit. Cranial nerves II through XII are grossly intact. No headache, no double vision or headache. SKIN: Not dry. Intact. Turgor-normal. LYMPHATIC: No palpable lymph nodes/no lymphedema. MUSCULOSKELETAL: Normal joints with no swelling. Muscle tone is normal. LAB REVIEW: 11/21/16 05:10 11/21/16 05:10 11/21/16 05:10: Sodium 138, Potassium 3.7, Chloride 103, Carbon Dioxide 25, Anion Gap 13.7, BUN 19 H, Creatinine 1.12, Estimated GFR (MDRD) 47.00, BUN/ Creatinine Ratio 16.96, Glucose 206 H, Calcium 9.1, Total Bilirubin 0.61, AST 13 L, ALT 16, Alkaline Phosphatase 68, Total Protein 5.7 L, Albumin 2.7 L, Globulin 3.0, Albumin/Globulin Ratio 0.90 11/21/16 05:10: WBC 11.70 H, RBC 4.20, Hgb 12.7, Hct 37.8, MCV 90.0, MCH 30.2, MCHC 33.6, RDW Coeff of Nacho 13.8, Plt Count 145, Immature Gran % (Auto) 1.3, Neut % (Auto) 71.9, Lymph % (Auto) 16.8, [place] % (Auto) 9.2, Eos % (Auto) 0.5, Baso % (Auto) 0.3, Immature Gran # (Auto) 0.2, Neut # 8.4 H, Lymph # 2.0, [place] # 1.1, Eos # 0.1, Baso # 0.0 ASSESSMENT: 1. Back pain 2. Confusion seems better. The patient is on small dose of Aricept and Namenda , which she is able to tolerate well and seems to have a positive effect on her function. 3. Dementia PLAN: 1. D/C home 2. Zestril 5 mg 3. Back in office on Friday 4. Continue Namenda and Aricept 5. Stop Decadron Plan and coordination of the patient's care discussed in the presence of Rayon Winder and nurse. CONDITION: Stable SCRIBED BY: SHELBI LAZO Fun House Attendant scribed while in presence of service performed by Dr. Dumont/Essence Carlos APRN on 11/21/16 ([id number])
[2016-11-21 09:55] VITALS: BP 127/71; TEMP 97
--- NOTE | 2016-11-21 10:11 | CM.DICTOOL ---
ADMISSION: 11/15/16 10:43 DISCHARGE: November 21, 2016 DATE OF SERVICE: 11/21/16 FINAL DIAGNOSIS Acute confusion/dementia Chronic Back pain Compression fractures T12 and L1, interdeterminate age Hypertension Leg edema, resolved Ataxia CKD, stage 3 Diabetes Mellitus, type 2 Depression Diverticulosis Hypothyroid Osteoarthritis Osteopenia Hiatal Hernia Macular Degeneration LAST VITALS Temp Pulse Resp BP Pulse Ox 97.3 F L 67 16 162/88 H 98 11/21/16 06:00 11/21/16 06:00 11/21/16 06:00 11/21/16 06:00 11/21/16 06:00 ACTIVE HOME MEDICATIONS Cholecalciferol (Vitamin D) 5,000 unit PO DAILY [facility] Last Admin: 11/21/16 08:53 Dose: 5,000 unit Furosemide (Lasix Tab) 20 mg PO QDAC [facility] Last Admin: 11/21/16 06:18 Dose: 20 mg Gabapentin (Neurontin) 300 mg PO BID [facility] Last Admin: 11/21/16 08:55 Dose: 300 mg Levothyroxine Sodium (Synthroid) 25 mcg PO QDAC [facility] Last Admin: 11/21/16 06:18 Dose: 25 mcg Linagliptin (Tradjenta) 5 mg PO DAILY [facility] Last Admin: 11/21/16 08:54 Dose: 5 mg Lisinopril (Zestril) 5 mg PO DAILY [facility] Last Admin: 11/21/16 08:56 Dose: 5 mg (new dose) Multivitamins (Multivitamin) 1 cap PO DAILY [facility] Last Admin: 11/21/16 08:56 Dose: 1 cap Non-Formulary Medication (Beta-Carotene(A) W-C & E/Min [Vision Vitamins]) 1 each PO DAILY [facility] Last Admin: 11/21/16 08:57 Dose: Not Given Omeprazole (Prilosec) 20 mg PO QDAC [facility] Last Admin: 11/21/16 06:17 Dose: 20 mg Tramadol HCl (Ultram) 50 mg PO DAILY [facility] Last Admin: 11/21/16 08:55 Dose: 50 mg Venlafaxine HCl (Effexor Xr) 75 mg PO DAILY [facility] Last Admin: 11/21/16 08:55 Dose: 75 mg ALLERGIES citalopram [From Celexa] Adverse Reaction (Verified 11/15/16 16:13) escitalopram [From Lexapro] Adverse Reaction (Verified 11/15/16 16:13) oxaprozin [From Daypro] Adverse Reaction (Verified 11/15/16 16:13) paroxetine [From Paxil] Adverse Reaction (Verified 11/15/16 16:13) Penicillins Adverse Reaction (Verified 11/15/16 16:13) zolpidem [From Ambien] Adverse Reaction (Verified 11/15/16 16:13) NEW PRESCRIPTIONS: K-DUR 20 MEQ DAILY NAMENDA 10 MG DAILY AT BEDTIME ARICEPT 5 MG DAILY LISINOPRIL 5 MG DAILY SMOKING: NOT APPLICABLE DISEASE SPECIFIC EDUCATION: PATIENT HAS CONFUSION, NOT APPLICABLE LAB REVIEW: 11/21/16 05:10 11/21/16 05:10 11/21/16 05:10: Sodium 138, Potassium 3.7, Chloride 103, Carbon Dioxide 25, Anion Gap 13.7, BUN 19 H, Creatinine 1.12, Estimated GFR (MDRD) 47.00, BUN/ Creatinine Ratio 16.96, Glucose 206 H, Calcium 9.1, Total Bilirubin 0.61, AST 13 L, ALT 16, Alkaline Phosphatase 68, Total Protein 5.7 L, Albumin 2.7 L, Globulin 3.0, Albumin/Globulin Ratio 0.90 11/21/16 05:10: WBC 11.70 H, RBC 4.20, Hgb 12.7, Hct 37.8, MCV 90.0, MCH 30.2, MCHC 33.6, RDW Coeff of Nacho 13.8, Plt Count 145, Immature Gran % (Auto) 1.3, Neut % (Auto) 71.9, Lymph % (Auto) 16.8, [place] % (Auto) 9.2, Eos % (Auto) 0.5, Baso % (Auto) 0.3, Immature Gran # (Auto) 0.2, Neut # 8.4 H, Lymph # 2.0, [place] # 1.1, Eos # 0.1, Baso # 0.0 PLAN: DISCHARGE TO [facility] DIET: REGULAR TOLERATED ACTIVITY: GRADUALLY RESUME TOLERATED. USE WALKER WHEN AMBULATING MAY BE UP TO DINING ROOM FOR MEALS DESIRED MEDICATION CHANGES: LISINOPRIL HAS BEEN INCREASED TO 5 MG DA[address] PLEASE CALL [address]. DUMONT'S OFFICE LATER TODAY TO SCHEDULE AN APPOINTMENT FOR November. MS. GUAJARDO IS ALERT TO PERSON, PLACE. SHE TRANSFERS TO THE CHAIR AND [place] [facility]IMAL ASSISTANCE OF THE NURSING STAFF OR HER SON. SHE HAS BEEN AMBULATORY IN THE [place] WITH THE ROLLING WALKER AND ASSISTANCE OF HER SON. MEAL INTAKES HAVE BEEN GOOD AT 100%. SHE IS CONTINENT OF BOWEL AND BLADDER. SKIN IS INTACT, BUT BRUISING IS NOTED TO THE RIGHT FOREARM. THE SKIN TO THE LOWER EXTREMITIES HAS DARK DISCOLORATION AND IS DRY, BUT NO OPEN AREAS NOTED. ALEXANDRO DUMONT MD ROSI MATTHEW APRN
--- NOTE | 2016-11-21 14:47 | PN ---
DATE OF SERVICE: 11/18/16 SUBJECTIVE: The patient was seen and examined with Nurse Practitioner. The patient is oriented to place and person. Her kidney functions showed some improvement. Some how the patient's IV fluids were discontinued. The patient is going to be started on IV fluids. MRI of the brain is going to be done because finding was suspicious for pituitary infundibulum, lesion not well visualized. It is going to be difficult to do MRI on this patient but we are going try. The patient's son is concerned about patient's behavior, it is usually worsened during the evening hours. She may not be able to stay in assisted living with his type of mental status and he is thinking about putting the patient in the [facility]. PHYSICAL EXAMINATION: HEENT: Head normocephalic, atraumatic. Eyes: Extraocular muscles are intact. Pupils are equal, round and reactive to light and accommodation. Ears: No lesions. Nose appeared normal. Throat: No exudate or erythema. NECK: Supple. No JVD, no carotid bruit. No lymphadenopathy or thyromegaly. LUNGS: Clear to auscultation. Percussion note normal. Chest symmetrical. HEART: S1, S2, no S3. No murmurs. No cyanosis or clubbing. No ascites. Pulses: Dorsalis pedis and posterior tibial pulses +1 to +2 both sides. ABDOMEN: Soft. Nontender. Bowel sounds active. No CVA tenderness. No mass felt. EXTREMITIES: No edema. Full range of motion of all extremities, equal. No lateralizing sign. NEUROLOGIC: No focal deficit. Cranial nerves II through XII are grossly intact. No headache, no double vision or headache. SKIN: Not dry. Intact. Turgor - Good. LYMPHATIC: No palpable lymph nodes/no lymphedema. MUSCULOSKELETAL: Normal joints with no swelling. Muscle tone is normal. CONDITION: Stable. TIME SPENT: More than 30 minutes. Plan and coordination of the patient's care discussed in the presence of nurse. KALPANA
--- NOTE | 2016-11-22 12:42 | PN ---
DATE OF SERVICE: 11/21/16 SUBJECTIVE: The patient is going to be discharged today. She was admitted with confusion, chronic back pain which seems to be coming from compression fracture; T12 and L1. The son is taking a lot of interest. The patient's confusion has subsided and she is feeling somewhat better. She is still is confused at time but not as often. She is being put on 5mg Aricept and 10mg Namenda. She has tolerated very well in the past. She herself declined to take it. The patient's condition is stable and her cardiovascular status is stable. Kidney functions are abnormal but stable. The patient is going to go back to Assisted Living and if her confusion worsens then the son may consider Jail Placement. CONDITION: Stable The patient was seen and examined with Nurse Practitioner. TIME SPENT: More than 30 minutes. Plan and coordination of the patient's care discussed in the presence of nurse. KALPANA
--- NOTE | 2016-11-22 14:55 | PN ---
11/15/16: Level 5 11/16/16: Intermediate 11/17/16: Intermediate 11/18/16: Intermediate 11/19/16: Intermediate 11/20/16: Intermediate 11/21/16: D as in discharge MTDD
--- NOTE | 2016-11-28 13:15 | HP ---
DATE OF SERVICE: 11/15/16 HISTORY OF PRESENT ILLNESS: This is an 80-year-old female who presented with increased confusion today; normally when she has a UTI. She was confused all last night. The symptoms started 3 to 4 days ago. The patient has history of recurrent UTI. She resides at an assisted living facility. PAST MEDICAL HISTORY: 1. Anemia 2. Ataxia 3. Back pain 4. Blindness 5. Cataract 6. CKD (3) 7. Diabetes mellitus type 2 8. Depression 9. Diverticulosis of colon 10. Hiatal hernia 11. Back pain 12. Knee pain 13. GERD 14. Hyperthyroid 15. Osteoarthritis 16. Recurrent UTI MENSTRUAL HISTORY: Hysterectomy, mammogram refused repeat PAST SURGICAL HISTORY: 1. Gallbladder 2. Bladder 3. Hysterectomy 4. Colonoscopy (refused repeat, Dr. Ramírez) REVIEW OF SYSTEMS: CONSTITUTIONAL: Fever and fatigue. HEENT: No sinus drainage, no sore throat. RESPIRATORY: No cough, no congestion. CARDIOVASCULAR: No atypical chest pain for coronary artery disease. No angina , CHF symptoms, palpitations or shortness of breath. GASTROINTESTINAL: No melena or abdominal pain. No GERD. GENITOURINARY: No hematuria, no prostatism, no polyuria. [employer]ET[employer]ENT: No blackout, no dizziness, no headache, no double vision. Gait - wheelchair. MUSCULOSKELETAL: No osteoarthritis pain, no joint swelling. ENDOCRINE: No weight loss, no weight gain. SKIN: Not dry, no rash. PSYCHIATRIC: Positive for confusion. Not anxious, no depression, no suicidal thoughts, no homicidal thoughts. SOCIAL HISTORY: Nonsmoker. . Two children. Retired. No alcohol use. FAMILY HISTORY: Father ; mother . Three brothers; one sister. MEDICATIONS: (Home) 1. Multivitamin daily 2. Gabapentin 300 mg one at h.s. 3. Glipizide 5 mg daily 4. Tradjenta 5 mg daily 5. Lisinopril 5 mg 1/2 daily 6. Omeprazole 20 mg daily 7. Venlafaxine 75 mg daily 8. Beta -Carotene (A) W-C & E/Min (Vision Vitamins one each p.o. daily 9. Tramadol 50 mg daily 10. Levothyroxine 25 mg daily 11. Lasix 40 mg 1/2 daily ALLERGIES: PENICILLIN, AMBIEN, DAYPRO, CELEXA, LEXAPRO, PAXIL PHYSICAL EXAMINATION: V/S: Pulse 98, BP 120/74, temperature 99.3, 02 sat 96%. GENERAL APPEARANCE: Oriented to person. HEENT: Normal. NECK: No JVP, no bruits. RESPIRATORY: Lungs have decreased breath sounds. CARDIOVASCULAR: S1, S2, no S3, no murmurs. No cyanosis, clubbing. No ascites. GI/ABDOMEN: Abdominal tenderness. Bowel sounds are active. EXTREMITIES: +1 lower extremity edema, pulses +1, equal. [employer] MARKETING [employer]ENT: Deep tendon reflexes, sensory, motor and gait all normal. RECTAL/PELVIC: Dr. Ramírez - colonoscopy screening, refused repeat. Pelvic - hysterectomy. Advised pap smear yearly. Refused mammogram. Foot care discussed. LABS: Sodium 142, potassium 3.6, BUN 19, creatinine 1.45, glucose 237, GFR 35, total bili 1.3, AST 19, ALT 20, total protein 6.7, albumin 3.1, globulin 3.6, TSH 1.19. White count 8.22, red blood cells 4.13, hemoglobin 12.4, hematocrit 37.8, platelets 136. Chest x-ray reveals cardiomegaly without any evidence for pulmonary edema, hiatal hernia, severe compression deformity of L1. ASSESSMENT: 1. ACUTE CONFUSION/DEMENTIA 2. CHRONIC BACK PAIN, DR. SILVA 3. ANEMIA 4. ATAXIA 5. BACK PAIN 6. BLIND 7. CATARACT 8. CHRONIC KIDNEY DISEASE, STAGE 3 9. DIABETES MELLITUS TYPE 2, A1C 6.5 10/10 10. DEPRESSION 11. DIVERTICULOSIS OF COLON 12. RECURRENT UTI 13. OSTEOARTHRITIS 14. HIATAL HERNIA 15. BACK PAIN 16. HYPOTHYROIDISM 17. HISTORY OF FREQUENT UTI FOR A LOT OF YEARS (UA within normal limits) PLAN: 1. Admit with telemetry times 24 hours 2. Blood cultures times two 3. UA with culture and sensitivity 4. 1000 cc D5 1/2 NS 12 hourly 5. Diet - regular 6. CBC, CMP, T4 and TSH 7. EKG today 8. Chest x-ray today 9. X-ray of L-spine 10. Toradol 30 mg IV now and q.12hourly today and q.a.m. 11. 1 cc Decadron IM today and q.a.m. 12. Continue all medications 13. Levaquin 500 mg IV daily TIME SPENT: More than 70 minutes. MTDD
--- NOTE | 2016-12-02 09:34 | PN ---
DATE OF SERVICE: 11/18/16 SUBJECTIVE: The patient examined. She was sitting in her chair this morning. Over the weekend she has had some worsening confusion. She had not been sleeping. Last night the son reported that she did sleep well. She is oriented to person and place this morning; however, not time. She does have an MRI of the brain scheduled today. REVIEW OF SYSTEMS: CONSTITUTIONAL: No night sweats. No fatigue, malaise, lethargy. No fever or chills. HEENT: Eyes: No visual changes. No eye pain. No eye discharge. ENT: No runny nose. No epistaxis. No sinus pain. No sore throat. No odynophagia. No congestion. RESPIRATORY: No cough, no congestion. No hemoptysis. No shortness of breath. CARDIOVASCULAR: No angina symptoms. No CHF symptoms. No atypical chest pain for CAD. No palpitations. No orthopnea. GASTROINTESTINAL: No abdominal pain. No nausea or vomiting. No diarrhea or constipation. No hematemesis. No hematochezia. GENITOURINARY: No urgency. No frequency. No dysuria. No hematuria. No obstructive symptoms. No discharge. No pain. No significant abnormal bleeding. MUSCULOSKELETAL: No musculoskeletal pain; no joint swelling. NEUROLOGICAL: No headache. No neck pain. No syncope. No seizures. No dizziness. PSYCHIATRIC: Not anxious. No depression. No suicidal thoughts. No homicidal thoughts. SKIN: No rash. No lesions. No wounds. ENDOCRINE: No unexplained weight loss. No weight gain. HEMATOLOGIC/LYMPHATIC: No anemia. No purpura. No petechiae. No prolonged or excessive bleeding. No palpable lymph nodes. PHYSICAL EXAMINATION: HEENT: Head normocephalic, atraumatic. Eyes: Extraocular muscles are intact. Pupils are equal, round and reactive to light and accommodation. Ears: No lesions. Nose appeared normal. Throat: No exudate or erythema. NECK: Supple. No JVD, no carotid bruit. No lymphadenopathy or thyromegaly. LUNGS: Diminished breath sounds bilaterally. Clear to auscultation. Percussion note normal. Chest symmetrical. HEART: S1, S2, no S3. No murmurs. No cyanosis or clubbing. No ascites. Pulses: Dorsalis pedis and posterior tibial pulses +1 to +2 both sides. ABDOMEN: Soft. Nontender. Bowel sounds active. No CVA tenderness. No mass felt. EXTREMITIES: No edema. Full range of motion of all extremities, equal. NEUROLOGIC: Positive for bouts of confusion. No focal deficit. Cranial nerves II through XII are grossly intact. No headache, no double vision or headache. SKIN: Chronic discoloration of lower extremities due to peripheral vascular disease. Not dry. Intact. Turgor - normal. LYMPHATIC: No palpable lymph nodes/no lymphedema. MUSCULOSKELETAL: Normal joints with no swelling. Muscle tone is normal. ASSESSMENT: 1. CHRONIC BACK PAIN WITH COMPRESSION DEFORMITIES 2. ACUTE CONFUSION 3. ALZHEIMER'S DEMENTIA WORSENING 4. CHRONIC KIDNEY DISEASE PLAN: 1. MRI of brain today The patient currently resides at [facility]. Over the weekend, Dr. Guzmán spoke with the son regarding Alzheimer's dementia. We have restarted her on Aricept on a low dose 5 mg along with started Namenda. The son would like to try to place her back in [facility] and see how she does. 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 We will reevaluate after she has been at [facility] for a couple of weeks. Thus far, all of her tests have been normal. UA was normal. Blood cultures are normal. Chest x-ray was normal. We think the increase in confusion is just a gradual worsening of Alzheimer's dementia. TIME SPENT: More than 30 minutes. Plan and coordination of the patient's care discussed in the presence of nurse. KALPANA
--- NOTE | 2016-12-04 15:24 | DS ---
DATE OF SERVICE: 11/21/16 FINAL DIAGNOSIS: 1. CHRONIC BACK PAIN 2. COMPRESSION FRACTURES T12 AND L1, INDETERMINATE AGE 3. HYPERTENSION 4. LEG EDEMA, RESOLVED 5. ACUTE CONFUSION/DEMENTIA 6. ATAXIA 7. CKD, STAGE 3 8. DIABETES MELLITUS, TYPE 2 9. DEPRESSION 10. DIVERTICULOSIS 11. HYPOTHYROID 12. OSTEOARTHRITIS 13. OSTEOPENIA 14. HIATAL HERNIA 15. MACULAR DEGENERATION DISCHARGE INSTRUCTIONS: Followup appointment: Please call Dr. Guzmán's office later today to schedule an appointment for November 26. Discharged to [facility]. MEDICATIONS AT DISCHARGE: Cholecalciferol 5,000 unit p.o. daily annette Furosemide 20 mg p.o. q.d a.c. annette Neurontin 300 mg p.o. b.i.d annette Levothyroxine 25 mcg p.o. q.d a.c. annette Linagliptin (Tradjenta) 5 mg p.o. daily annette Lisinopril (Zestril) 5 mg p.o. daily annette Multivitamin one cap p.o. daily annette Non Formulary Medication (Beta-Carotene, W-C and E/min (vision vitamins)one each p.o. daily Omeprazole 20 mg p.o. q.d a.c. annette Tramadol 50 mg p.o. daily annette Effexor 75 mg p.o. daily annette MEDICATION CHANGES: Lisinopril has been increased to 5 mg daily NEW PRESCRIPTIONS: K-Dur 20 mEq daily Namenda 10 mg daily at bedtime Aricept 5 mg daily Lisinopril 5 mg daily DIET INSTRUCTIONS: Regular as tolerated ACTIVITY: Gradually resume as tolerated. Use walker when ambulating. May be up to dining room for meals as desired. SMOKING: N/A DISEASE SPECIFIC EDUCATION: Patient has confusion, not applicable HOSPITAL COURSE: This is an 80-year-old female who was a direct admit from our office. She presented with increased confusion, low grade fever for 2 to 3 days. She was brought in by her son. She has a history of recurrent UTI. She was subsequently admitted. Her UA was normal. We did an MRI of her brain which showed possible lesion on her pituitary gland, which recommended an MRI dedicated to the pituitary. We had to hydrate her with increased fluids for 2 to 3 days in order to improve kidney function, in order to do the MRI of the pituitary gland which ended up being normal. Over the course of her hospital stay, she did have some bouts of confusion. On Friday and Friday she actually became combative and argumentative with the staff. This quickly resolved. She does experience Sundowner's in the evenings consistent with dementia. Yesterday with MRI of the pituitary we continued IV fluids in order to combat the IV contrast from the MRI. Her kidney function has significantly improved today. BUN 19, creatinine 1.12, sodium 138, potassium 3.7. She has seen Dr. Carrizales in the past regarding her kidney function which fluctuates significantly and this is normal for her. Today , she did have elevated blood pressure of 162/88. We will increase her Lisinopril to 5 mg. This may also be due to aggressive hydration so we will just increase Lisinpril slightly. We will see her in the office next week on Friday or Friday. She is going to go back to [facility]. We also started her on Namenda and Aricept while she was here regarding dementia. Her son, Omid, has been very involved during her hospital stay. We have talked about her worsening confusion and Sundowner's. We will send her back to [facility] and see how she does and give it two to three weeks. If her confusion continues to worsen and she is combative then may consider [facility] placement later on. This has been discussed in detail with the son. During her hospital stay, it was found that she did not have a UTI. Her chest x-ray was normal. MRI of the brain was consistent with aging. The low grade fever might be partially due to slight dehydration and again today, on day of discharge, her kidney function is significantly improved and almost normal. Hemoglobin is stable at 12.7 with hematocrit 37.8, platelets 145. For the past two days she has been up and about walking with the use of a walker, eating 100% of her meals. We will see her back in the office next week. TIME SPENT: More than 60 minutes. KALPANA
== END 2016-11-21 11:23 | disposition home or self-care (01) | DRG 57 ==
LOC: MEDSURG A 10:43
PROVIDERS: ADMIT Internal Medicine; ATTEND Internal Medicine
DX: G30.9 Alzheimer's disease, unspecified (principal); F05 Delirium due to known physiological condition; M48.54XA Collapsed vertebra, not elsewhere classified, thoracic region, initial encounter for fracture; M48.56XA Collapsed vertebra, not elsewhere classified, lumbar region, initial encounter for fracture; F02.80 Dementia in other diseases classified elsewhere, unspecified severity, without behavioral disturbance, psychotic disturbance, mood disturbance, and anxiety; I10 Essential (primary) hypertension; E86.0 Dehydration; R60.0 Localized edema; R27.0 Ataxia, unspecified; E23.6 Other disorders of pituitary gland; I12.9 Hypertensive chronic kidney disease with stage 1 through stage 4 chronic kidney disease, or unspecified chronic kidney disease; E11.22 Type 2 diabetes mellitus with diabetic chronic kidney disease; N18.3 Chronic kidney disease, stage 3 (moderate); F32.9 Major depressive disorder, single episode, unspecified; K57.30 Diverticulosis of large intestine without perforation or abscess without bleeding; E03.9 Hypothyroidism, unspecified; M19.90 Unspecified osteoarthritis, unspecified site; M85.80 Other specified disorders of bone density and structure, unspecified site; K44.9 Diaphragmatic hernia without obstruction or gangrene; H35.30 Unspecified macular degeneration; E87.6 Hypokalemia; Z87.440 Personal history of urinary (tract) infections; Z79.84 Long term (current) use of oral hypoglycemic drugs; Z79.899 Other long term (current) drug therapy
CPT/HCPCS: 36415; 80053; 81001; 82607; 82962; 83036; 84439; 84443; 85025; 87040; 87081; 93005; 93010

== ENCOUNTER 2016-12-20 09:36 | Outpatient (CLI) ==
[2016-12-20 09:46] LABS: BILIRUBIN,URINE Negative (NEGATIVE); KETONES,URINE Negative (NEGATIVE); LEUKOCYTE ESTERASE ,URINE 3+ (NEGATIVE); NITRITE,URINE Positive (NEGATIVE); PH,URINE 5.5 (5-9); PROTEIN,URINE Negative (NEGATIVE); URINE, BLOOD Trace-intact (NEGATIVE)
[2016-12-20 09:52] LABS: ADD URINE MICROSCOPIC YES
[2016-12-20 09:53] LABS: BACTERIA,URINE 3+ (NOT PRESENT)
== END 2016-12-20 09:37 | disposition home or self-care (01) ==
LOC: NONPT 09:36
PROVIDERS: ATTEND Internal Medicine
DX: R30.0 Dysuria (principal)
CPT/HCPCS: 81001; 87086; 87186

== ENCOUNTER 2017-01-06 13:48 | Outpatient (CLI) ==
[2017-01-06 14:04] LABS: ADD URINE MICROSCOPIC NO; BILIRUBIN,URINE Negative (NEGATIVE); KETONES,URINE Trace (NEGATIVE); LEUKOCYTE ESTERASE ,URINE Negative (NEGATIVE); NITRITE,URINE Negative (NEGATIVE); PH,URINE 5.5 (5-9); PROTEIN,URINE Negative (NEGATIVE); URINE, BLOOD Negative (NEGATIVE)
== END 2017-01-06 13:49 | disposition home or self-care (01) ==
LOC: NONPT 13:48
PROVIDERS: ATTEND Internal Medicine
DX: R20.8 Other disturbances of skin sensation (principal)
CPT/HCPCS: 81001

== ENCOUNTER 2017-01-27 11:25 | Emergency (ER) ==
[2017-01-27 11:44] VITALS: BP 118/62; TEMP 99.5; BMI 27.3
--- NOTE | 2017-01-27 12:23 | ED.PDOC ---
General ED Provider: Dr. MEGHANA ARCINIEGA Chief Complaint: Fall Stated Complaint: fall Time Seen by Physician: 11:30 (seen with kirsten ) Mode of Arrival: Stretcher Information Source: Retirement Exam Limitations: No limitations Primary Care Provider: ALEXANDRO DUMONT Nursing and Triage Documentation Reviewed and Agree: Yes Trauma/Injury Complaint Exam - Trauma Complaint/Exam Location of Pain or Injury: Reports: Back Mechanism of Injury: Reports: Fall Onset/Duration: 1 hr ago Symptoms Are: Still present Initial Severity: None Current Severity: None Aggravating: Reports: None Alleviating: Reports: None Associated Signs and Symptoms: Denies: LOC, Confusion, Memory loss, Lethargy, Vomiting, Bleeding, Bruising, Swelling, Extremity disuse, Painful respiration, Hoarseness, Dysphagia, Hemoptysis, Significant blood loss Nexus Low Risk Criteria: No post-midline CS tender, No evidence of intoxicat., No Altered LOC, No focal neuro deficit, No distracting injuries Glascow Coma Scale (see protocol): 15 Skin Findings: Present: Normal findings Differential Diagnoses: Sprain, Strain Review of Systems - Review Of Systems Constitutional: Reports: No symptoms Eyes: Reports: No symptoms Ears, Nose, Mouth, Throat: Reports: No symptoms Respiratory: Reports: No symptoms Cardiac: Reports: No symptoms GI: Reports: No symptoms : Reports: No symptoms Musculoskeletal: Reports: No symptoms Skin: Reports: No symptoms Neurological: Reports: No symptoms Endocrine: Reports: No symptoms Hematologic/Lymphatic: Reports: No symptoms All Other Systems: Reviewed and Negative Past Medical History - Past Medical History Previously Healthy: Yes Endocrine: Reports: None Cardiovascular: Reports: None Respiratory: Reports: None Hematological: Reports: None Gastrointestinal: Reports: None Genitourinary: Reports: None Neuro/Psych: Reports: None Musculoskeletal: Reports: None Cancer: Reports: None Last Menstrual Period: unknown - Surgical History General Surgical History: Reports: None - Family History Family History: Reports: None - Social History Smoking Status: Never smoker Hx Substance Use: No Alcohol Screening: None Physical Exam - Physical Exam Appearance: Well-appearing, No pain distress, Well-nourished Eyes: ALMITA, EOMI, Conjunctiva clear ENT: Ears normal, Nose normal, Oropharynx normal Respiratory: Airway patent, Breath sounds clear, Breath sounds equal, Respirations nonlabored Cardiovascular: RRR, Pulses normal, No rub, No murmur GI/: Soft, Nontender, No masses, Bowel sounds normal, No Organomegaly Musculoskeletal: Normal strength, ROM intact, No edema, No calf tenderness Skin: Warm, Dry, Normal color Neurological: Sensation intact, Motor intact, Reflexes intact, Cranial nerves intact, Alert, Oriented Psychiatric: Affect appropriate, Mood appropriate Critical Care Note - Critical Care Note Total Time (mins): 0 Course - Course Vital Signs: Temp Pulse Resp BP Pulse Ox 01/27/17 11:28 99.5 F 72 20 118/62 92 L Departure - Departure Time of Disposition: 12:23 (all bones palpated no point tenderness noted kirsten was present at all times ) Disposition: HOME SELF-CARE Discharge Problem: Normal exam Instructions: Fall Prevention for Older Adults (GEN), Fall Prevention for Older Adults (ED) Condition: Good Pt referred to PMD for follow-up: Yes Additional Instructions: Please call your Family Physician as soon as possible to schedule a follow-up appointment. Allergies/Adverse Reactions: Allergies citalopram [From Celexa] Adverse Reaction (Verified 01/27/17 11:53) escitalopram [From Lexapro] Adverse Reaction (Verified 01/27/17 11:53) oxaprozin [From Daypro] Adverse Reaction (Verified 01/27/17 11:53) paroxetine [From Paxil] Adverse Reaction (Verified 01/27/17 11:53) Penicillins Adverse Reaction (Verified 01/27/17 11:53) zolpidem [From Ambien] Adverse Reaction (Verified 01/27/17 11:53) Home Medications: Ambulatory Orders Beta-Carotene(A)-Vits C,E/Mins [Vision Vitamins] 1 each PO DAILY 11/15/16 Cholecalciferol (Vitamin D3) [Vitamin D3] 5,000 units PO DAILY 11/15/16 Furosemide [Lasix] 20 mg PO DAILY 11/15/16 Gabapentin 300 mg PO BID 11/15/16 Levothyroxine Sodium [Synthroid] 25 mcg PO DAILY 11/15/16 Linagliptin [Tradjenta] 5 mg PO DAILY 11/15/16 Multivitamin [Multi-Vitamin Daily] 1 tab PO DAILY 11/15/16 Omeprazole 20 mg PO DAILY 11/15/16 Tramadol HCl [Ultram] 50 mg PO DAILY 11/15/16 Venlafaxine HCl [Effexor] 75 mg PO DAILY 11/15/16 Donepezil HCl [Aricept] 5 mg PO DAILY #30 tablet 11/21/16 Lisinopril [Zestril] 5 mg PO DAILY #30 tablet 11/21/16 Memantine HCl [Namenda] 10 mg PO BEDTIME #30 tablet 11/21/16 Potassium Chloride [K-Dur] 20 meq PO DAILY #30 tab 11/21/16 Disposition Discussed With: Patient, Family
== END 2017-01-27 15:35 | disposition home or self-care (01) ==
LOC: ED 11:25
DX: Z04.3 Encounter for examination and observation following other accident (principal); W19.XXXA Unspecified fall, initial encounter; Y92.129 Unspecified place in nursing home as the place of occurrence of the external cause; M25.551 Pain in right hip; R29.6 Repeated falls
CPT/HCPCS: 99283

== ENCOUNTER 2017-03-18 11:33 | Outpatient (CLI) | END 2017-03-18 11:34 | disposition home or self-care (01) | LOC: NONPT 11:33 | PROVIDERS: ATTEND Internal Medicine | DX: N39.0 Urinary tract infection, site not specified (principal) | CPT/HCPCS: 81001; 87086; 87186 ==

== ENCOUNTER 2017-05-05 11:21 | Outpatient (CLI) | END 2017-05-05 11:22 | disposition home or self-care (01) | LOC: NONPT 11:21 | PROVIDERS: ATTEND Internal Medicine | DX: N39.0 Urinary tract infection, site not specified (principal) | CPT/HCPCS: 81001; 87086 ==

== ENCOUNTER 2017-06-21 02:22 | Emergency (ER) ==
[2017-06-21 02:36] VITALS: BP 156/72; TEMP 97.7; BMI 25.8
--- NOTE | 2017-06-21 03:28 | ED.PDOC ---
General ED Provider: Dr. ELIEL CLEMENTS Chief Complaint: Fall Stated Complaint: Found down trying to clean her urine. She complains of mild hip pain on the left. No obvious injuries. Time Seen by Physician: 03:26 Mode of Arrival: Ambulance Information Source: Patient, Half-Way, EMT Primary Care Provider: ALEXANDRO DUMONT Nursing and Triage Documentation Reviewed and Agree: Yes Reviewed sepsis parameters & appropriate labs ordered?: No System Inflammatory Response Syndrome: Not Applicable Sepsis Protocol: For patient's 13 years and over: Temp is 96.8 and below OR 101 and greater Pulse >90 BPM Resp >20/minute Acutely Altered Mental Status Are patient's symptoms suggestive of a new infection, such as: -Pneumonia -Skin, Soft Tissue -Endocarditis -UTI -Bone, Joint Infection -Implantable Device -Acute Abdominal Infection -Wound Infection -Meningitis -Blood Stream Catheter Infection -Unknown System Inflammatory Response Syndrome: Not Applicable Review of Systems - Review Of Systems Constitutional: Reports: No symptoms Eyes: Reports: No symptoms Ears, Nose, Mouth, Throat: Reports: No symptoms Respiratory: Reports: No symptoms Cardiac: Reports: No symptoms GI: Reports: No symptoms : Reports: No symptoms Musculoskeletal: Reports: Joint pain Skin: Reports: No symptoms Neurological: Reports: Anxiety, Cognitive dysfunction Endocrine: Reports: No symptoms Hematologic/Lymphatic: Reports: No symptoms All Other Systems: Other (limited due to dementia.) Past Medical History - Past Medical History Previously Healthy: Yes Endocrine: Reports: DM 2, Hypothyroid Cardiovascular: Reports: Hypertension Respiratory: Reports: None Hematological: Reports: None Gastrointestinal: Reports: Other (Diverticulosis ) Genitourinary: Reports: CKD Neuro/Psych: Reports: Depression, Dementia Musculoskeletal: Reports: None Cancer: Reports: None Last Menstrual Period: UNKNOWN Other Pertinent Past Medical History: Ataxia - Surgical History General Surgical History: Reports: None - Family History Family History: Reports: None - Social History Smoking Status: Never smoker Hx Substance Use: No Alcohol Screening: None - Immunizations Tetanus Shot up to Date: (UNKNOWN) Physical Exam - Physical Exam Appearance: Well-appearing Pain Distress: Mild Eyes: ALMITA ENT: Nose normal, Oropharynx normal Neck: Supple Respiratory: Airway patent, Breath sounds clear, Breath sounds equal, Respirations nonlabored Cardiovascular: RRR, Pulses normal, No rub, No murmur GI/: Soft Musculoskeletal: Limited ROM (left shoulder ) Neurological: Alert, Oriented (x1 only ) Psychiatric: Anxious Interpretation - Radiology Interpretation Radiology Interpretation By: Radiologist Radiology Results: Negative Exam Interpreted: CT Scan (Head, Cervical and Pelvis. ) Radiology Interpretation By: Radiologist Radiology Results: Negative Exam Interpreted: Other (Left shoulder ) Critical Care Note - Critical Care Note Total Time (mins): 0 Course - Course Orders, Labs, Meds: Orders Category Date Time Status CT CERVICAL SPINE W/O CONTRAST Stat RADS 06/21/17 02:[address] HEAD W/O CONTRAST Stat RADS 06/21/17 02:[address] PELVIS W/O CONTRAST Stat RADS 06/21/17 02:42 Completed SHOULDER, LEFT MIN 2V Stat RADS 06/21/17 02:46 Completed Vital Signs: Temp Pulse Resp BP Pulse Ox 06/21/17 02:23 97.7 F 75 18 156/72 H 98 Departure - Departure Time of Disposition: 04:00 Disposition: TRANSFER SNF Discharge Problem: Falls Instructions: Fall Prevention for Older Adults (ED) Condition: Good Pt referred to PMD for follow-up: Yes IPMP verified?: No Additional Instructions: Follow up with Your PCP in 3 days. Take Tylenol as needed for pain Allergies/Adverse Reactions: Allergies citalopram [From Celexa] Adverse Reaction (Verified 06/21/17 02:42) escitalopram [From Lexapro] Adverse Reaction (Verified 06/21/17 02:42) oxaprozin [From Daypro] Adverse Reaction (Verified 06/21/17 02:42) paroxetine [From Paxil] Adverse Reaction (Verified 06/21/17 02:42) Penicillins Adverse Reaction (Verified 06/21/17 02:42) zolpidem [From Ambien] Adverse Reaction (Verified 06/21/17 02:42) Home Medications: Ambulatory Orders Furosemide [Lasix] 40 mg PO DAILY 11/15/16 Gabapentin 300 mg PO DAILY 11/15/16 Levothyroxine Sodium [Synthroid] 25 mcg PO DAILY 11/15/16 Linagliptin [Tradjenta] 5 mg PO DAILY 11/15/16 Multivitamin [Multi-Vitamin Daily] 1 tab PO DAILY 11/15/16 Omeprazole 20 mg PO DAILY 11/15/16 Tramadol HCl [Ultram] 50 mg PO BID 11/15/16 Venlafaxine HCl [Effexor] 75 mg PO DAILY 11/15/16 Lisinopril [Zestril] 5 mg PO DAILY #30 tablet 11/21/16 Potassium Chloride [K-Dur] 20 meq PO DAILY #30 tab 11/21/16 Acetaminophen 650 mg PO Q4H PRN 06/21/17 Cholecalciferol (Vitamin D3) [Vitamin D3] 1,000 unit PO DAILY 06/21/17 Disposition Discussed With: Patient
--- NOTE | 2017-06-21 04:14 | CT ---
EXAM: CT brain without contrast HISTORY: Fall TECHNIQUE: CT of the brain without intravenous contrast FINDINGS: There is no acute hemorrhage midline shift or mass effect. No hydrocephalus or abnormal e xtra-axial fluid collection. Generalized involutional atrophy, mild. Chronic microvascular changes of the white matter tracts, moderate. No acute large vessel territorial infarct is seen. The bony c ranium appears normal. Right and left maxillary sinus mucoperiosteal thickening. Soft tissues the wit hout significant abnormality. IMPRESSION: 1. Chronic changes as described. No acute intracranial abnormality is seen.
--- NOTE | 2017-06-21 04:16 | CT ---
CT cervical spine without contrast HISTORY: Neck pain status post fall TECHNIQUE: CT of the cervical spine with multiplanar reformations. FINDINGS: Reformatted images demonstrate normal alignment with preservation of vertebral body height . Mild to moderate multilevel endplate spondylosis and disc space narrowing. Upper cervical facet ar thropathy changes. No fracture seen on the axial or reformatted images. No acute surrounding soft ti ssue abnormalitites. Lung apices are clear. IMPRESSION: No acute findings in the cervical spine.
--- NOTE | 2017-06-21 04:19 | CT ---
Exam: CT pelvis without contrast History: Fall with left hip pain Technique: [address] bony pelvis with multiplanar reformations FINDINGS: The pelvic ring is intact. The sacrum and coccyx are intact. The femoral hips are intact . Mild, symmetric bilateral hip osteoarthritic change. No acute visceral for peripheral soft tissue abnormalities are seen. Impression: 1. No acute findings of the pelvic ring or femoral hips.
--- NOTE | 2017-06-21 04:20 | DI ---
Exam: Left shoulder three-view History: Fall with limited range of motion Findings / impression: No acute bony or articular abnormality of the left shoulder. Mild glenohumer al and acromioclavicular osteoarthritic change.
== END 2017-06-21 05:35 ==
LOC: ED 02:22
DX: M25.552 Pain in left hip (principal); M25.612 Stiffness of left shoulder, not elsewhere classified; W19.XXXA Unspecified fall, initial encounter
CPT/HCPCS: 99283

== ENCOUNTER 2017-11-28 13:10 | Inpatient (IN) ==
--- NOTE | 2017-11-28 14:31 | CT ---
EXAM: CT thoracic spine without contrast HISTORY: Fall. COMPARISON: CT chest 11/28/2017 and Chest x-ray 11/15/2016 TECHNIQUE: Serial axial images of the thoracic spine were obtained without contrast. These were vie wed in multiple planes. FINDINGS: There is unchanged compression fracture at L1, stable since 2017. There is no acute compre ssion fracture or subluxation. There is minimal disc space narrowing and osteophyte formation. The facets are normal. There is a comminuted displaced fracture of the right tenth and displaced fractur e of the 11th ribs with comminuted displaced fracture of the ninth rib. There is a massive hiatal hernia. There is atelectasis and right pleural fluid. This is better eval uated on same day CT chest. There is questionable trace pneumothorax seen posteriorly on image 56. IMPRESSION: 1. No acute compression fracture or subluxation of the thoracic spine. 2. Stable chronic compression fracture at L1. 3. Multiple comminuted and displaced fractures of the posterior right ribs are identified with minim al adjacent fluid and questionable trace pneumothorax. This is better evaluated on same day CT chest.
--- NOTE | 2017-11-28 14:42 | CT ---
EXAM: CT lumbar spine without contrast. HISTORY: Fall COMPARISON: Lumbar spine x-rays 11/15/2016 TECHNIQUE: Serial axial images of the spine were obtained from the lower thoracic spine through the pelvis without contrast. These were viewed in multiple planes. FINDINGS: Vertebral bodies demonstrate stable chronic compression fracture at L1. There is no addit ional compression fracture identified. There is scattered mild disc space narrowing and osteophyte f ormation. There is moderate facet arthropathy throughout the lumbosacral spine. There is unchanged leftward curvature of the lumbar spine. L1-L2: Facet arthropathy and mild retropulsion of the fracture demonstrates moderate bilateral neural foraminal narrowing. L2-L3: Posterior disc osteophyte and facet arthropathy contribute to mild to moderate right neural fo raminal narrowing. L3-L4: Posterior disc osteophyte and facet arthropathy with mild bilateral neural foraminal narrowing . L4-L5: Posterior disc osteophyte and facet arthropathy with moderate right neural foraminal narrowing L5-S1: Mild facet arthropathy with no central or neural foraminal narrowing. Limited views of the soft tissues are unremarkable. IMPRESSION: 1. No acute compression fracture or subluxation. 2. Stable compression fracture at L1. 3. Multilevel at least moderate degenerative disease of the spine with leftward curvature and multil evel neural foraminal narrowing as described above.
--- NOTE | 2017-11-28 15:12 | CT ---
EXAM: CT chest without contrast HISTORY: Fall with right rib bruising COMPARISON: Chest x-ray 11/15/2016 TECHNIQUE: Serial axial images of the chest were obtained from the lung apices to the upper abdomen without contrast. These were viewed in multiple planes. FINDINGS: The thyroid is normal. The visualized vessels demonstrate minimal atherosclerotic disease without aneurysm or stenosis. The heart is normal in size without pericardial effusion. There are no pathologically enlarged mediastinal or hilar lymph nodes. There is a nondisplaced fracture of the posterior right ninth rib. There is a comminuted displaced r ight tenth rib. There is a displaced fracture of the right eleventh rib. There is minimal fluid adj acent to the fractures with atelectasis. There is questionable trace pneumothorax adjacent to the fr acture site. The lungs are otherwise clear. Very large hiatal hernia with the majority of the stomach within the hernia. The soft tissues in the upper abdomen demonstrate prior cholecystectomy. There is subcutaneous ground-glass in the posterior right flank consistent with trauma. IMPRESSION: 1. Multiple comminuted displaced fractures in the right posterior ribs as described above with minim al adjacent fluid and trace adjacent near/pneumothorax. 2. Very large hernia containing the majority of the stomach in the chest. 3. Mild right basilar atelectasis. 4. Ground-glass in the right flank suggestive of post traumatic changes.
--- NOTE | 2017-11-28 15:34 | CT ---
EXAM: CT Abdomen without contrast. CT Pelvis without contrast. HISTORY: Abdominal trauma due to a fall. Right-sided bruising. Rib fractures. COMPARISON: Chest CT and lumbar spine CT earlier the same day. Pelvic CT 06/21/2017 TECHNIQUE: Multiple axial images of the abdomen and pelvis were obtained without intravenous contras t. Images were reformatted in the sagittal and coronal plane. FINDINGS: Please note that evaluation of the abdominal and pelvic structures is limited due to lack of intravenous contrast. Comminuted displaced right posterior tenth rib fracture noted with additional displaced right posteri or ninth and eleventh rib fractures noted with small amount of adjacent pleural fluid, posterior righ t lower lobe consolidation and posterior chest wall edema. Severe compression fracture of L1 noted w ithout significant retropulsion. Degenerative changes seen in the spine. Gallbladder is absent. The liver, pancreas, spleen, adrenal glands, and kidneys demonstrate normal c ontour. There is no hydronephrosis. Large hiatal hernia contains nearly the entire stomach. The transverse duodenum does not cross the m idline, remaining in the right abdomen with the proximal jejunum also in the right abdomen suggesting a component of malrotation. There is some small bowel in the left abdomen and the colon is relative ly normal in position. There is no evidence for bowel obstruction. The appendix is normal. Uterus is absent. Urinary bladder is only minimally distended. Small amount of air seen within the bladder . No free fluid or free air detected. Small fat-containing umbilical hernia is present. There is m oderate subcutaneous edema in the right lateral abdomen. IMPRESSION: 1. Right ninth through eleventh rib fractures with associated tiny pleural effusion and right lower lobe atelectasis or parenchymal contusion. 2. Right lateral abdominal contusion. 3. Small amount of air in the urinary bladder could be due to recent catheterization or cystitis.
--- NOTE | 2017-11-28 16:25 | ED.PDOC ---
General ED Provider: Dr. MEGHANA ARCINIEGA Chief Complaint: Back Pain Stated Complaint: back pain, right posterior chest wall pain Time Seen by Physician: 13:13 (stated she fell on 11/22/17) Mode of Arrival: Wheelchair Information Source: Patient, Skilled Nursing Exam Limitations: No limitations Primary Care Provider: ALEXANDRO DUMONT Nursing and Triage Documentation Reviewed and Agree: Yes Does patient meet sepsis criteria?: No If yes, has appropriate treatment been initiated?: No System Inflammatory Response Syndrome: Not Applicable Sepsis Protocol: For patient's 13 years and over: Temp is 96.8 and below OR 101 and greater Pulse >90 BPM Resp >20/minute Acutely Altered Mental Status Are patient's symptoms suggestive of a new infection, such as: -Pneumonia -Skin, Soft Tissue -Endocarditis -UTI -Bone, Joint Infection -Implantable Device -Acute Abdominal Infection -Wound Infection -Meningitis -Blood Stream Catheter Infection -Unknown Trauma/Injury Complaint Exam - Trauma Complaint/Exam Location of Pain or Injury: Reports: Chest, Back Mechanism of Injury: Reports: Fall Onset/Duration: 6 days Symptoms Are: Still present Timing of Treatment: Immediate Initial Severity: Mild Current Severity: Mild Character: Reports: Aching Aggravating: Reports: Movement Alleviating: Reports: Rest Associated Signs and Symptoms: Reports: Bruising (right chest /abdomen see photos). Denies: LOC, Confusion, Memory loss, Lethargy, Vomiting, Bleeding, Swelling, Extremity disuse, Painful respiration, Hoarseness, Dysphagia, Hemoptysis, Significant blood loss Penetrating Injury Risk Factors: Reports: None Related Surgical History: Reports: None Nexus Low Risk Criteria: No post-midline CS tender, No evidence of intoxicat., No Altered LOC, No focal neuro deficit, No distracting injuries Glascow Coma Scale (see protocol): 15 Trauma Findings: Absent: [place] eyes, Hemotympanum, Nasal deformity, Dental tenderness, Dental injury, Dental malocclusion, Neck tenderness, Neck spasm, SubQ Air, Crepitus, Airway obstructed, Trachea displaced, Labored respirations, Decreased breath sounds, Muffled heart sounds, Weak pulses, Absent pulses, Abdominal distention, Pelvic tenderness, Pelvic instability Skin Findings: Present: Contusion (right lower chest RUQ SEE PHOTOS) Differential Diagnoses: Contusions, Fracture, Sprain, Strain Review of Systems - Review Of Systems Constitutional: Reports: No symptoms Eyes: Reports: No symptoms Ears, Nose, Mouth, Throat: Reports: No symptoms Respiratory: Reports: No symptoms Cardiac: Reports: Chest pain GI: Reports: No symptoms : Reports: No symptoms Musculoskeletal: Reports: Back pain Skin: Reports: Bruising Neurological: Reports: No symptoms Endocrine: Reports: No symptoms Hematologic/Lymphatic: Reports: No symptoms All Other Systems: Reviewed and Negative Past Medical History - Past Medical History Previously Healthy: Yes Endocrine: Reports: DM 2, Hypothyroid Cardiovascular: Reports: Hypertension Respiratory: Reports: None Hematological: Reports: None Gastrointestinal: Reports: Other (Diverticulosis ) Genitourinary: Reports: CKD Neuro/Psych: Reports: Depression, Dementia Musculoskeletal: Reports: None Cancer: Reports: None Last Menstrual Period: none Other Pertinent Past Medical History: Ataxia - Surgical History General Surgical History: Reports: None - Family History Family History: Reports: None - Social History Smoking Status: Never smoker Hx Substance Use: No Alcohol Screening: None Physical Exam - Physical Exam Appearance: Well-appearing, No pain distress, Well-nourished Eyes: ALMITA, EOMI, Conjunctiva clear ENT: Ears normal, Nose normal, Oropharynx normal Respiratory: Airway patent, Breath sounds clear, Breath sounds equal, Respirations nonlabored Cardiovascular: RRR, Pulses normal, No rub, No murmur GI/: Soft, Nontender, No masses, Bowel sounds normal, No Organomegaly Musculoskeletal: Normal strength (CHEST WALL TENDER RIGHT SIDED WHICH IS THE SAME PAIN WHICH BRINGS THE PT TO ED TODAY) Skin: Warm, Dry (BRUSING NOTED ON THE PHOTOS) Neurological: Sensation intact, Motor intact, Reflexes intact, Cranial nerves intact, Alert, Oriented Psychiatric: Affect appropriate, Mood appropriate Interpretation - Radiology Interpretation Radiology Interpretation By: Radiologist Radiology Results: Positive (MULTIPLE RIB FX AND TRACE POSSIBLE PNEUMO) Re-Evaluation - Re-Evaluation Time of Re-Evaluation: 15:00 Status: Unchanged Vital Signs Stable: Yes Pain Level: 3/10 Appearance: NAD Lungs: Clear Skin: Warm and Dry (SEE THE BRUSING ON THE PHOTOS) Neuro: Alert and Oriented X3 CV: RRR - Re-Evaluation Time of Re-Evaluation: 16:28 Status: Unchanged Vital Signs Stable: Yes Appearance: NAD Skin: Warm and Dry Neuro: Alert and Oriented X3 CV: RRR (PMD ALSO SAW THE PT IN E.D. AND EVALUATED THE C.T. REPORTS ADVISED ADMISSION) Physician Notification - Case Discussed Physician Notified: PMD Time of Notification: 15:40 (ADMITT) Critical Care Note - Critical Care Note Total Time (mins): 0 Course - Course Hematology/Chemistry: 11/28/17 15:18 11/28/17 15:18 Orders, Labs, Meds: Lab Review 11/28/17 11/28/17 11/28/17 15:18 15:18 15:18 WBC 10.43 H RBC 4.22 Hgb 13.0 Hct 40.1 MCV 95.0 MCH 30.8 MCHC 32.4 RDW Coeff of Nacho 14.0 Plt Count 152 Immature Gran % (Auto) 0.7 Neut % (Auto) 70.2 Lymph % (Auto) 16.1 Sanders % (Auto) 11.8 H Eos % (Auto) 0.7 Baso % (Auto) 0.5 Immature Gran # (Auto) 0.1 Neut # (Auto) 7.3 H Lymph # (Auto) 1.7 Sanders # (Auto) 1.2 Eos # (Auto) 0.1 Baso # (Auto) 0.1 PT 9.8 INR 0.98 APTT 22.6 L Sodium 139.1 Potassium 3.97 Chloride 99.5 Carbon Dioxide 34.1 H Anion Gap 9.47 BUN 28.3 H Creatinine 1.41 H Estimated GFR (MDRD) 36.00 BUN/Creatinine Ratio 20.07 Glucose 132.1 H Calcium 9.54 Total Bilirubin 0.86 AST 35.1 ALT 18.9 Alkaline Phosphatase 63.7 Total Creatine Kinase 135.1 H CK-MB (CK-2) 3.480 H CK-MB (CK-2) % 2.5700 Troponin I < 0.012 Total Protein 7.30 Albumin 3.91 Globulin 3.39 Albumin/Globulin Ratio 1.15 Orders Category Date Time Status EKG-(ED ONLY) Stat CARDIO 11/28/17 14:58 Completed ED IV/MEDIPORT/POWERPORT .ONCE EMERGENCY 11/28/17 14:58 Active CBC W/ AUTO DIFF Stat LAB 11/28/17 15:18 Completed COMPREHENSIVE METABOLIC PANEL Stat LAB 11/28/17 15:18 Completed CREATINE KINASE Stat LAB 11/28/17 15:18 Completed PARTIAL THROMBOPLASTIN TIME Stat LAB 11/28/17 15:18 Completed PT WITH INR Stat LAB 11/28/17 15:18 Completed TROPONIN I Stat LAB 11/28/17 15:18 Completed 0.9 % Sodium Chloride [Saline Flush] MEDS 11/28/17 14:57 Active 1 syr IVF PRN PRN CT ABDOMEN/PELVIS WO CONTRAST Stat RADS 11/28/17 14:[address] CHEST W/O CONTRAST Stat RADS 11/28/17 13:[address] LUMBAR SPINE W/O CONTRAST Stat RADS 11/28/17 13:[address] THORACIC SPINE W/O CONTRAST Stat RADS 11/28/17 13:26 Completed Medications Generic Name Dose Route Start Last Admin Trade Name Freq PRN Reason Stop Dose Admin Sodium Chloride 1 syr 11/28/17 14:57 Saline Flush IVF PRN PRN To flush IV Vital Signs: Temp Pulse Resp BP Pulse Ox 11/28/17 13:11 98.0 F 92 H 18 101/71 95 Departure - Departure Time of Disposition: 16:29 Disposition: ADMITTED INPATIENT Discharge Problem: Backache Right rib fracture Qualifiers: Encounter type: initial encounter Rib fracture type: multiple ribs Fracture type: closed Qualified Code(s): S22.41XA - Multiple fractures of ribs, right side, initial encounter for closed fracture Instructions: Chest Wall Pain (ED) Condition: Good Pt referred to PMD for follow-up: Yes IPMP verified?: No Allergies/Adverse Reactions: Allergies citalopram [From Celexa] Adverse Reaction (Verified 11/28/17 13:15) escitalopram [From Lexapro] Adverse Reaction (Verified 11/28/17 13:15) oxaprozin [From Daypro] Adverse Reaction (Verified 11/28/17 13:15) paroxetine [From Paxil] Adverse Reaction (Verified 11/28/17 13:15) Penicillins Adverse Reaction (Verified 11/28/17 13:15) zolpidem [From Ambien] Adverse Reaction (Verified 11/28/17 13:15) Home Medications: Ambulatory Orders Furosemide [Lasix] 40 mg PO DAILY 11/15/16 Gabapentin 300 mg PO DAILY 11/15/16 Levothyroxine Sodium [Synthroid] 25 mcg PO DAILY 11/15/16 Linagliptin [Tradjenta] 5 mg PO DAILY 11/15/16 Multivitamin [Multi-Vitamin Daily] 1 tab PO DAILY 11/15/16 Omeprazole 20 mg PO DAILY 11/15/16 Tramadol HCl [Ultram] 50 mg PO BID 11/15/16 Venlafaxine HCl [Effexor] 75 mg PO DAILY 11/15/16 Potassium Chloride [K-Dur] 20 meq PO DAILY #30 tab 11/21/16 Acetaminophen 650 mg PO Q4H PRN 06/21/17 Cholecalciferol (Vitamin D3) [Vitamin D3] 1,000 unit PO DAILY 06/21/17 Lisinopril [Zestril] 2.5 mg PO DAILY 11/28/17 Magnesium Hydroxide [Milk of Magnesia] 30 ml PO Q72H PRN 11/28/17 Mineral Oil/Hydrophil Petrolat [Aquaphor Healing Ointment] 50 gm TP DAILY Disposition Discussed With: Patient
[2017-11-28] MEDS ORDERED: TYLENOL PO PRN (16:30)
[2017-11-28] MEDS ORDERED: SODIUM CHLORIDE 0.9%-KCL 20 MEQ 1,000 ML IV SCH (17:00)
[2017-11-28 17:23] VITALS: BMI 24.3
[2017-11-28] MEDS: SODIUM CHLORIDE 1,000 ML IV SCH (17:27)
[2017-11-28] MEDS: NORCO 10-325 PO SCH ×2 (17:27→20:57)
[2017-11-29] MEDS: NORCO 10-325 PO SCH ×6 (00:37→20:30)
[2017-11-29] MEDS: TORADOL IVP PRN ×2 (00:46→22:02)
[2017-11-29] MEDS: SYNTHROID PO SCH (06:17)
[2017-11-29] MEDS: LASIX TAB PO SCH (06:17)
[2017-11-29] MEDS: PRILOSEC PO SCH (06:17)
[2017-11-29] MEDS ORDERED: NON-FORMULARY MEDICATION (Venlafaxine Hcl 75 MG) PO SCH (09:00)
[2017-11-29] MEDS ORDERED: LASIX TAB PO SCH (09:00)
[2017-11-29] MEDS: [UNRECOGNIZED DRUG - OTHER] TP SCH (09:21)
[2017-11-29] MEDS: TRADJENTA PO SCH (09:22)
[2017-11-29] MEDS: ZESTRIL PO SCH (09:22)
[2017-11-29] MEDS: NEURONTIN PO SCH (09:23)
[2017-11-29] MEDS: MULTIVITAMIN TABLET PO SCH (09:23)
[2017-11-29] MEDS: K-DUR PO SCH (09:23)
[2017-11-29] MEDS: SODIUM CHLORIDE 1,000 ML IV SCH (11:16)
[2017-11-29] MEDS: EFFEXOR PO SCH (11:16)
[2017-11-29] MEDS: ALBUTEROL 0.042% NEB NEB SCH (22:21)
[2017-11-30] MEDS: NORCO 10-325 PO SCH ×6 (00:57→20:19)
[2017-11-30] MEDS: SODIUM CHLORIDE 1,000 ML IV SCH ×2 (01:40→14:22)
[2017-11-30] MEDS: ALBUTEROL 0.042% NEB NEB SCH ×4 (05:36→22:50)
[2017-11-30] MEDS: PRILOSEC PO SCH (06:23)
[2017-11-30] MEDS: SYNTHROID PO SCH (06:23)
[2017-11-30] MEDS: LASIX TAB PO SCH (06:23)
[2017-11-30] MEDS: [UNRECOGNIZED DRUG - OTHER] TP SCH (08:39)
[2017-11-30] MEDS: EFFEXOR PO SCH (08:49)
[2017-11-30] MEDS: K-DUR PO SCH (08:49)
[2017-11-30] MEDS: TRADJENTA PO SCH (08:49)
[2017-11-30] MEDS: NEURONTIN PO SCH (08:50)
[2017-11-30] MEDS: ZESTRIL PO SCH (08:50)
[2017-11-30] MEDS: MULTIVITAMIN TABLET PO SCH (08:51)
[2017-11-30] MEDS: TORADOL IVP PRN (23:21)
[2017-12-01] MEDS ORDERED: VISTARIL INJ IM STA (00:10)
[2017-12-01] MEDS ORDERED: VISTARIL INJ IM ONE (00:14)
[2017-12-01] MEDS: NORCO 10-325 PO SCH ×4 (00:59→13:59)
[2017-12-01] MEDS: SODIUM CHLORIDE 1,000 ML IV SCH ×2 (03:59→12:40)
[2017-12-01] MEDS: ALBUTEROL 0.042% NEB NEB SCH ×2 (05:00→11:12)
[2017-12-01] MEDS: PRILOSEC PO SCH (05:30)
[2017-12-01] MEDS: SYNTHROID PO SCH (05:30)
[2017-12-01] MEDS: LASIX TAB PO SCH (05:30)
[2017-12-01] MEDS: EFFEXOR PO SCH (09:15)
[2017-12-01] MEDS: ZESTRIL PO SCH (09:15)
[2017-12-01] MEDS: MULTIVITAMIN TABLET PO SCH (09:15)
[2017-12-01] MEDS: TRADJENTA PO SCH (09:15)
[2017-12-01] MEDS: NEURONTIN PO SCH (09:15)
[2017-12-01] MEDS: K-DUR PO SCH (09:15)
[2017-12-01] MEDS: [UNRECOGNIZED DRUG - OTHER] TP SCH (09:16)
--- NOTE | 2017-12-01 11:06 | HP ---
DATE OF SERVICE: 11/28/17 HISTORY OF PRESENT ILLNESS: This is an 81-year-old white female, who is a resident of [facility]. She experienced a fall on 11/22 and today started complaining of upper back pain, rib pain, grimacing with palpation. They were instructed to bring her out here to the emergency room. PAST MEDICAL HISTORY: Generalized muscle weakness Dementia with behavioral disturbances History of compression fracture T11 to T12 Degenerative joint disease Chronic kidney disease Hypertension Recurrent UTIs Depression/anxiety History of diverticulosis Hypothyroidism Macular degeneration Chronic leg edema History of falls Diabetes mellitus type 2 PAST SURGICAL HISTORY: Cholecystectomy Hysterectomy Refused repeat colonoscopy REVIEW OF SYSTEMS: CONSTITUTIONAL: No night sweats. No fatigue, malaise, lethargy. No fever or chills. HEENT: Eyes: No visual changes. No eye pain. No eye discharge. ENT: No runny nose. No epistaxis. No sinus pain. No sore throat. No odynophagia. No ear pain. No congestion. RESPIRATORY: No cough, no congestion. No hemoptysis. No shortness of breath. CARDIOVASCULAR: No angina symptoms. No CHF symptoms. No atypical chest pain for CAD. No palpitations. No PND. No orthopnea. GASTROINTESTINAL: No abdominal pain. No nausea or vomiting. No diarrhea or constipation. No hematemesis. No hematochezia. GENITOURINARY: No urgency. No frequency. No dysuria. No hematuria. No obstructive symptoms. No discharge. No pain. No significant abnormal bleeding. MUSCULOSKELETAL: Rib pain, back pain. NEUROLOGICAL: Slight confusion. No headache. No neck pain. No syncope. No seizures. No dizziness. PSYCHIATRIC: Not anxious. No depression. No suicidal thoughts. No homicidal thoughts. SKIN: No rash. No lesions. No wounds. ENDOCRINE: No unexplained weight loss. No weight gain. HEMATOLOGIC/LYMPHATIC: No anemia. No purpura. No petechiae. No prolonged or excessive bleeding. No palpable lymph nodes. PERSONAL/FAMILY/SOCIAL HISTORY: She is . No alcohol or ilicit drug use. She is a nonsmoker. She is a resident of [facility]. She has a son who is her POA, who lives in [place]. MEDICATIONS: ( RESIDENTIAL) Velafaxine (Effexor) 75 mg p.o. daily Furosemide (Lasix) 40 mg p.o. daily Tramadol (Ultram) 50 mg p.o. b.i.d. Omeprazole 20 mg p.o. daily Multivitamin one tab p.o. daily Linagliptin (Tradjenta) 5 mg p.o. daily Levothyroxine (Synthroid) 25 mcg p.o. daily Gabapentin 300 mg p.o. daily Potassium Chloride (K-Dur) 20 mEq p.o. daily Acetaminophen 650 mg p.o. q.4h p.r.n. Cholecalciferol (Vitamin D3) 1,000 unit p.o. daily Magnesium Hydroxide (Milk of Magnesia) 30 mL p.o. q.72h p.r.n. Lisinopril (Zestril) 2.5 mg p.o. daily ALLERGIES: CITALOPRAM, ESCITALOPRAM, OXAPROZIN, PAROXETINE, PENICILLINS, ZOLIPIDEM PHYSICAL EXAMINATION: VITAL SIGNS: Temperature 97.8, pulse 70, respiratory rate 18, BP 138/69. Height 5'6", weight 151 lbs, 0.266 oz. HEENT: Head normocephalic, atraumatic. Eyes: Extraocular muscles are intact. Pupils are equal, round and reactive to light and accommodation. Ears: No lesions. Nose appeared normal. Throat: No exudate or erythema. NECK: Supple. No JVD, no carotid bruit. No lymphadenopathy or thyromegaly. LUNGS: Diminished breath sounds. Clear to auscultation. Percussion note normal. Chest symmetrical. HEART: S1, S2, no S3. No murmurs. No cyanosis or clubbing. No ascites. Pulses: Dorsalis pedis and posterior tibial pulses +1 to +2 bilaterally. ABDOMEN: Soft. She does have pain on the right side concurrent with rib fractures. Bowel sounds active. No CVA tenderness. No mass felt. EXTREMITIES: No edema. Full range of motion of all extremities, equal. NEUROLOGIC: Oriented to person only. No focal deficit. Cranial nerves II through XII are grossly intact. No headache, no double vision or headache. SKIN: Not dry. Intact. Turgor - normal. LYMPHATIC: No palpable lymph nodes/no lymphedema. MUSCULOSKELETAL: Normal joints with no swelling. Muscle tone is normal. CT of the T-spine shows no acute compression fracture, chronic compression fracture at L1, multiple comminuted and displaced fractures of the posterior right ribs. CT of the pelvis shows no fracture or dislocation. CT of the chest shows multiple comminuted displaced fractures in the right posterior ribs with minimal adjacent fluid and trace adjacent near. Large hiatal hernia. CT of the abdomen shows right ninth through eleventh rib fractures with associated tiny pleural effusion, right lateral abdominal contusion. LABS: WBC 10.43, RBC 4.22, hgb 13.0, hct 40.1, platelet count 152. Chemistries: Sodium 139.1, potassium 3.97, chloride 99.5, carbon dioxide 34.1, BUN 28.3, creatinine 1.41, glucose 132.1, calcium 9.54, Total bili 0.86, AST 35.1, ALT 18.9, alkaline phosphatase 63.7, total protein 7.30, albumin 3.91. ASSESSMENT: 1. Multiple comminuted and displaced fractures of the right posterior ribs 9th through 11th. 2. Chronic compression fractures. 3. Intractable pain along with fractures and recent fall. 4. Dementia. 5. Hypertension. 6. Chronic kidney disease. 7. Anemia. PLAN: 1. We will admit. At the half-way, the patient is a DNR. Her son is the POA. 2. She takes Tramadol 50 mg daily, will give Toradol 30 mg IV q.8hr scheduled and hold p.o. Tramadol. Otherwise, continue all home medications. 3. 1 cc Decadron IM daily. 4. CBC, CMP daily. 5. Oxygen at 1 to 2L as needed. 6. Will start on Levaquin 250 mg p.o. daily. 7. Will do a urinalysis. 8. IV fluids at 75 cc/hr, NS. 9. Regular diet. 10. Elevate legs. 11. Will follow closely. It is to be noted that the son did not want her sent to the hospital today due to change of environment tends to increase her confusion; however, due to her severe pain at the half-way, we felt it was best for her to be evaluated by a physician and be brought to the emergency room. When she fell on 11/22 at the half-way, Dr. Guzmán was notified of the fall. Her assessment was normal. The family did not wish for her to be sent out at that time either and so she had been monitored until this point and had not complained of any pain until today. We will admit her to help control her pain and followup with her closely. TIME SPENT: More than 70 minutes. KALPANA
--- NOTE | 2017-12-01 11:37 | PCM.PROG ---
Attending Provider: ATTENDING PROVIDER: Dr. ALEXANDRO DUMONT This patient is seen with Essence Carlos, Nurse Practitioner. DATE OF SERVICE: 12/01/17 SUBJECTIVE: This 81 year old WHITE/ F was hospitalized 11/28/17. The patient is sitting in chair resting comfortably. She has been eating well. She is pleasantly confused as usual, reports pain is improving. REVIEW OF SYSTEMS: CONSTITUTIONAL: No night sweats. No fatigue, malaise, lethargy. No fever or chills. HEENT: Eyes: No visual changes. No eye pain. No eye discharge. ENT: No runny nose. No epistaxis. No sinus pain. No odynophagia. No congestion. RESPIRATORY: No cough, no congestion. No hemoptysis. No shortness of breath. CARDIOVASCULAR: No angina symptoms. No CHF symptoms. No atypical chest pain for CAD. No palpitations. No orthopnea.. GASTROINTESTINAL: Right-sided rib pain. No abdominal pain. No nausea or vomiting. No diarrhea or constipation. No hematemesis. No hematochezia. GENITOURINARY: No urgency. No frequency. No dysuria. No hematuria. No obstructive symptoms. No discharge. No pain. No significant abnormal bleeding. MUSCULOSKELETAL: No musculoskeletal pain; no joint swelling. NEUROLOGICAL: Awake, confusion. No headache. No neck pain. No syncope. No seizures. No dizziness. PSYCHIATRIC: Not anxious. No depression. No suicidal thoughts. No homicidal thoughts. SKIN: No rash. No lesions. No wounds. ENDOCRINE: No unexplained weight loss. No weight gain. HEMATOLOGIC/LYMPHATIC: No anemia. No purpura. No petechiae. No prolonged or excessive bleeding. No palpable lymph nodes. PHYSICAL EXAMINATION: GENERAL: The patient is awake, alert to person only sitting in chair in no distress. VITAL SIGNS: Temperature 98.0 F, Pulse 76, Respiratory Rate 12, BP 153/74, Pulse Ox 96% HEENT: Head normocephalic, atraumatic. Eyes: Extraocular muscles are intact. Pupils are equal, round and reactive to light and accommodation. Ears: No lesions. Nose appeared normal. Throat: No exudate or erythema. NECK: Supple. No JVD, no carotid bruit. No lymphadenopathy or thyromegaly. LUNGS: Diminished breath sounds. Clear to auscultation. Percussion note normal. Chest symmetrical. HEART: S1, S2, no S3. No murmurs. No cyanosis or clubbing. No ascites. Pulses: Dorsalis pedis and posterior tibial pulses +1 to +2 both sides. ABDOMEN: Soft. Non-tender. Bowel sounds active. No CVA tenderness. No mass felt. EXTREMITIES: No edema. Full range of motion of all extremities, equal. NEUROLOGIC: No focal deficit. Cranial nerves II through XII are grossly intact. No headache, no double vision or headache. SKIN: Not dry. Intact. Turgor-normal. LYMPHATIC: No palpable lymph nodes/no lymphedema. MUSCULOSKELETAL: Normal joints with no swelling. Muscle tone is normal. LAB REVIEW: 12/01/17 05:10 12/01/17 05:10 12/01/17 05:10: Sodium 141.0, Potassium 4.03, Chloride 107.9 H, Carbon Dioxide 26.9, Anion Gap 10.23, BUN 24.5 H, Creatinine 1.17, Estimated GFR (MDRD) 44.00, BUN/Creatinine Ratio 20.94, Glucose 95.2, Calcium 9.30, Total Bilirubin 0.78, AST 40.1 H, ALT 23.0, Alkaline Phosphatase 65.5, Total Protein 6.81, Albumin 3.62, Globulin 3.19, Albumin/Globulin Ratio 1.13 12/01/17 05:10: WBC 9.69, RBC 3.88 L, Hgb 11.9 L, Hct 36.5 L, MCV 94.1, MCH 30.7 , MCHC 32.6, RDW Coeff of Nacho 13.6, Plt Count 151, Immature Gran % (Auto) 0.5, Neut % (Auto) 64.8, Lymph % (Auto) 24.8, [place] % (Auto) 8.3, Eos % (Auto) 1.2, Baso % (Auto) 0.4, Immature Gran # (Auto) 0.1, Neut # (Auto) 6.3, Lymph # (Auto ) 2.4, [place] # (Auto) 0.8, Eos # (Auto) 0.1, Baso # (Auto) 0.0 ASSESSMENT: 1. Multiple right-sided rib fractures 2. Status post fall 3. Dementia PLAN: 1. Chest x-ray. 2. [place] 10 mg b.i.d p.r.n. breakthrough times 10 days. 3. Ultram 50 mg t.i.d. TERESA. 4. CBC, CMP in one week. 5. D/C telemetry. 6. D/C back to [place]. Plan and coordination of the patient's care discussed in the presence of Airborne Operations Superintendent and nurse. CONDITION: Stable SCRIBED BY: SHELBI LAZO [employer] Rolling [employer] Operator scribed while in presence of service performed by Dr. Dumont/Essence Carlos APRN on 12/01/17 ([id number])
--- NOTE | 2017-12-01 12:58 | DI ---
EXAM: Chest two views HISTORY: Right rib fracture, trace pneumothorax COMPARISON: The TECHNIQUE: Two views of the chest were performed FINDINGS: No definite consolidation. No visible pneumothorax. Probable small bilateral pleural eff usions. The heart is normal in size. The mediastinal contour is normal. Known right rib fractures are poorly visualized. Compression deformity in the lower spine appears unchanged. Large hiatal blaine ia. IMPRESSION: 1. Known right rib fractures are poorly visualized. Probable small bilateral pleural effusions. No visible pneumothorax. 2. Large hiatal hernia.
[2017-12-01 13:57] VITALS: BP 126/72; TEMP 98.3
--- NOTE | 2017-12-01 14:08 | CM.DICTOOL ---
ADMISSION: 11/28/17 16:39 DISCHARGE: DECEMBER 01, 2017 DATE OF SERVICE: 12/01/17 FINAL DIAGNOSIS BACK PAIN RIB FRACTURES, RIGHT 9-10-11 S/P FALL STABLE COMPRESSION FRACTURE L1 HYPERTENSION DIABETES, TYPE 2 HYPOTHYROID DEPRESSION DEMENTIA WITH BEHAVIOR DISTURBANCES OSTEOARTHRITIS CHRONIC KIDNEY DISEASE DIVERTICULOSIS HIATAL HERNIA MACULAR DEGENERATION CHOLECYSTECTOMY HYSTERECTOMY LAST VITALS Temp Pulse Resp BP Pulse Ox 98.0 F 76 12 153/74 H 96 12/01/17 06:00 12/01/17 06:00 12/01/17 06:00 12/01/17 06:00 12/01/17 06:00 TAKE THESE MEDICATIONS AT HOME Acetaminophen (Tylenol) 650 mg PO Q4H PRN PRN Reason: Fever >101 Hydrocodone Bitart/Acetaminophen (Zuni 10-325) 1 tab PO BID PRN Last Admin: 12/01/17 09:16 Dose: 1 tab Albuterol Sulfate (Albuterol 0.042% Neb) 1 vial NEB RTQ6H [facility] Last Admin: 12/01/17 11:12 Dose: 1 vial Furosemide (Lasix Tab) 40 mg PO QDAC [facility] Last Admin: 12/01/17 05:30 Dose: 40 mg Gabapentin (Neurontin) 300 mg PO DAILY [facility] Last Admin: 12/01/17 09:15 Dose: 300 mg Levothyroxine Sodium (Synthroid) 25 mcg PO QDAC [facility] Last Admin: 12/01/17 05:30 Dose: 25 mcg Linagliptin (Tradjenta) 5 mg PO DAILY [facility] Last Admin: 12/01/17 09:15 Dose: 5 mg Lisinopril (Zestril) 2.5 mg PO DAILY [facility] Last Admin: 12/01/17 09:15 Dose: 2.5 mg Multivitamins (Multivitamin Tablet) 1 tab PO DAILY [facility] Last Admin: 12/01/17 09:15 Dose: 1 tab Non-Formulary Medication (Mineral Oil/Hydrophil Petrolat [Aquaphor Healing Ointment]) 50 gm TP DAILY [facility] Last Admin: 12/01/17 09:16 Dose: Not Given Omeprazole (Prilosec) 20 mg PO QDAC [facility] Last Admin: 12/01/17 05:30 Dose: 20 mg Potassium Chloride (K-Dur) [facility] [place] Last Admin: 12/01/17 09:15 Dose: 20 meq Venlafaxine HCl (Effexor) 75 mg PO DAILY [facility] Last Admin: 12/01/17 09:15 Dose: 75 mg Magnesium Hydroxide 30 ml q 72 hours prn Last Admin: Cholecalciferol (Vitamin D3) 1000 units PO Daily Last Admin: Tramadol HCL (Ultram) 50 mg PO TID [facility] Last Admin: ALLERGIES citalopram [From Celexa] Adverse Reaction (Verified 11/28/17 13:15) escitalopram [From Lexapro] Adverse Reaction (Verified 11/28/17 13:15) oxaprozin [From Daypro] Adverse Reaction (Verified 11/28/17 13:15) paroxetine [From Paxil] Adverse Reaction (Verified 11/28/17 13:15) Penicillins Adverse Reaction (Verified 11/28/17 13:15) zolpidem [From Ambien] Adverse Reaction (Verified 11/28/17 13:15) DISCONTINUED MEDICATIONS None NEW PRESCRIPTIONS: Ultram 50 mg TID Zuni 10-325 mg BID prn breakthrough pain for 10 days only Albuterol Nebs 0.042% QID for 10 days SMOKING: Not Applicable DISEASE SPECIFIC EDUCATION: Patient confused Discharge discussed with the sonOmid Pain medications discussed with the sonOmid LAB REVIEW: 12/01/17 05:10 12/01/17 05:10 12/01/17 11:35: Urine Color Yellow, Urine Clarity Clear, Urine pH 5.0, Ur Specific [place] 1.010, Urine Protein Negative, Urine Glucose (UA) Negative, Urine Ketones Negative, Urine Blood Negative, Urine Nitrite Negative, Urine Bilirubin Negative, Urine Urobilinogen 0.2, Ur Leukocyte Esterase 2+, Urine Microscopic WBC 2-5, Ur Squamous Epith Cells 0-2, Urine Bacteria 1+ 12/01/17 05:10: Sodium 141.0, Potassium 4.03, Chloride 107.9 H, Carbon Dioxide 26.9, Anion Gap 10.23, BUN 24.5 H, Creatinine 1.17, Estimated GFR (MDRD) 44.00, BUN/Creatinine Ratio 20.94, Glucose 95.2, Calcium 9.30, Total Bilirubin 0.78, AST 40.1 H, ALT 23.0, Alkaline Phosphatase 65.5, Total Protein 6.81, Albumin 3.62, Globulin 3.19, Albumin/Globulin Ratio 1.13 12/01/17 05:10: WBC 9.69, RBC 3.88 L, Hgb 11.9 L, Hct 36.5 L, MCV 94.1, MCH 30.7 , MCHC 32.6, RDW Coeff of Nacho 13.6, Plt Count 151, Immature Gran % (Auto) 0.5, Neut % (Auto) 64.8, Lymph % (Auto) 24.8, [place] % (Auto) 8.3, Eos % (Auto) 1.2, Baso % (Auto) 0.4, Immature Gran # (Auto) 0.1, Neut # (Auto) 6.3, Lymph # (Auto ) 2.4, [place] # (Auto) 0.8, Eos # (Auto) 0.1, Baso # (Auto) 0.0 PLAN: Discharge to [facility] Diet: Consistent Carbohydrates, Regular Consistency Regular Liquids Activity: Up to chair for Meals May participate in activities Physical therapy evaluation Occupational therapy evaluation Incontinent Care Decubitus Precautions Vital Signs daily for one week, then weekly Oxygen saturation BID for one week, then daily Oxygen at 2 liters prn saturation below 90% Albuterol Nebs 0.042% QID for 10 days CBC, CMP in 1 week, then every 3 months A1C every 3 months TSH, Lipids every 6 months Accu-checks BID Code status: DNR Patient to be seen on long-term rounds by Essence Carlos APRN in 7-10 days Ms. Bill is alert to person only. She is able to feed herself breakfast with staff assist for meal set up and encouragement to eat. She is able to transfer to the bedside chair with assistance of 2 staff members. She is incontinent of urine, but will also use the bedside commode for elimination. She requires assistance of the nursing staff for bathing. She is unable to ambulate on her own. Skin is intact. A large area of ecchymosis is noted extending laterally from under the right breast to the right flank from a previous fall on . Joe Guzmán MD Essence Carlos APRN
--- NOTE | 2017-12-02 11:54 | PN ---
DATE OF SERVICE: 11/29/17 SUBJECTIVE: Abi Bill, 81 year old female hospitalized with back pain, fall and multiple rib fractures with trace pneumothorax. The patient's son, Omid Bill, is present in the room. The patient is alert, but confused. She denies of any pain or distress. REVIEW OF SYSTEMS: CONSTITUTIONAL: No night sweats. No fatigue, malaise, lethargy. No fever or chills. HEENT: Eyes: No visual changes. No eye pain. No eye discharge. ENT: No runny nose. No epistaxis. No sinus pain. No sore throat. No odynophagia. No congestion. RESPIRATORY: No cough, no congestion. No hemoptysis. No shortness of breath. CARDIOVASCULAR: No angina symptoms. No CHF symptoms. No atypical chest pain for CAD. No palpitations. No orthopnea. GASTROINTESTINAL: No abdominal pain. No nausea or vomiting. No diarrhea or constipation. No hematemesis. No hematochezia. GENITOURINARY: No urgency. No frequency. No dysuria. No hematuria. No obstructive symptoms. No discharge. No pain. No significant abnormal bleeding. MUSCULOSKELETAL: Back soreness; no joint swelling. NEUROLOGICAL: No headache. No neck pain. No syncope. No seizures. No dizziness. PSYCHIATRIC: Not anxious. No depression. No suicidal thoughts. No homicidal thoughts. SKIN: No rash. No lesions. No wounds. ENDOCRINE: No unexplained weight loss. No weight gain. HEMATOLOGIC/LYMPHATIC: No anemia. No purpura. No petechiae. No prolonged or excessive bleeding. No palpable lymph nodes. PHYSICAL EXAMINATION: GENERAL: The patient is alert, but confused. VITAL SIGNS: Temperature 97.9, pulse 68, respiratory rate 16, blood pressure 106/63, pulse ox 94% on room air. HEENT: Head normocephalic, atraumatic. Eyes: Extraocular muscles are intact. Pupils are equal, round and reactive to light and accommodation. Ears: No lesions. Nose appeared normal. Throat: No exudate or erythema. NECK: Supple. No JVD, no carotid bruit. No lymphadenopathy or thyromegaly. LUNGS: Decreased breath sounds, but clear. Percussion note normal. Chest symmetrical. HEART: S1, S2, no S3. No murmurs. No cyanosis or clubbing. No ascites. Pulses: Dorsalis pedis and posterior tibial pulses +1 to +2 both sides. ABDOMEN: Soft. Nontender. Bowel sounds active. No CVA tenderness. No mass felt. EXTREMITIES: No edema. Full range of motion of all extremities, equal. NEUROLOGIC: No focal deficit. Cranial nerves II through XII are grossly intact. No headache, no double vision or headache. SKIN: Not dry. Intact. Turgor - normal. LYMPHATIC: No palpable lymph nodes/no lymphedema. MUSCULOSKELETAL: Normal joints with no swelling. Muscle tone is normal. LABS: Hemoglobin 11.7, hematocrit 36, WBC 9,600 with normal differential. Creatinine 1.3, BUN 28, potassium 3.8. ASSESSMENT: 1. MULTIPLE RIB FRACTURES WITH HISTORY OF FALL 2. BACK PAIN 3. THE PATIENT'S CARDIOVASCULAR STATUS IS STABLE PLAN: 1. Continue pain medication, narcotics with Toradol. TIME SPENT: More than 30 minutes. Plan and coordination of the patient's care discussed in the presence of nurse. KALPANA
--- NOTE | 2017-12-02 12:01 | PN ---
DATE OF SERVICE: 11/30/17 SUBJECTIVE: 81 year old female hospitalized with fall and back pain with multiple rib fractures. The patient had trace pneumothorax. Her condition had improved. She is complaining about laying still, but no pain has just soreness. She seems to be a little bit confused. PHYSICAL EXAMINATION: GENERAL: The patient is alert, but confused. VITAL SIGNS: Temperature 97.5, pulse 68, respiratory rate 12, blood pressure 135/80, pulse ox 96%. HEENT: Head normocephalic, atraumatic. Eyes: Extraocular muscles are intact. Pupils are equal, round and reactive to light and accommodation. Ears: No lesions. Nose appeared normal. Throat: No exudate or erythema. NECK: Supple. No JVD, no carotid bruit. No lymphadenopathy or thyromegaly. LUNGS: Decreased breath sounds, but clear. Percussion note normal. Chest symmetrical. HEART: S1, S2, no S3. No murmurs. No cyanosis or clubbing. No ascites. Pulses: Dorsalis pedis and posterior tibial pulses +1 to +2 both sides. ABDOMEN: Soft. Nontender. Bowel sounds active. No CVA tenderness. No mass felt. EXTREMITIES: No edema. Full range of motion of all extremities, equal. NEUROLOGIC: No focal deficit. Cranial nerves II through XII are grossly intact. No headache, no double vision or headache. SKIN: Not dry. Intact. Turgor - normal. LYMPHATIC: No palpable lymph nodes/no lymphedema. MUSCULOSKELETAL: Normal joints with no swelling. Muscle tone is normal. LABS: Hemoglobin 10.9, hematocrit 33, WBC 7,200 with normal differential, creatinine 1.3, BUN 29, potassium 3.9. ASSESSMENT: 1. MULTIPLE RIB FRACTURES, BUT NO OTHER COMPLICATIONS. SHE IS BREATHING NORMALLY WITH NO EVIDENCE OF PNEUMONIA. 2. DEMENTIA SEEMS TO BE STABLE. CONDITION: Stable. TIME SPENT: More than 30 minutes. Plan and coordination of the patient's care discussed in the presence of nurse. KALPANA
--- NOTE | 2017-12-02 12:04 | PN ---
DATE OF SERVICE: 12/01/17 SUBJECTIVE: Abi Bill was hospitalized with multiple rib fractures posteriorly on the left. The patient is stable. She is getting around with much less pain than before. Cardiovascular and respiratory status stable. The patient was seen and examined with the nurse practitioner. TIME SPENT: More than 30 minutes. Plan and coordination of the patient's care discussed in the presence of nurse. KALPANA
--- NOTE | 2017-12-02 12:13 | PN ---
BILLING 11/28/17 Level 5 11/29/17 Intermediate 11/30/17 Intermediate 12/01/17 Discharge MTDD
--- NOTE | 2017-12-03 14:15 | DS ---
DATE OF SERVICE: 12/01/17 FINAL DIAGNOSIS: 1. BACK PAIN 2. RIB FRACTURES, RIGHT 11/03/10 3. STATUS POST FALL 4. STABLE COMPRESSION FRACTURE L1 5. HYPERTENSION 6. DIABETES MELLITUS, TYPE 2 7. HYPOTHYROID 8. DEPRESSION 9. DEMENTIA WITH BEHAVIOR DISTURBANCES 10. OSTEOARTHRITIS 11. CHRONIC KIDNEY DISEASE 12. DIVERTICULOSIS 13. HIATAL HERNIA 14. MACULAR DEGENERATION 15. CHOLECYSTECTOMY 16. HYSTERECTOMY DISCHARGE INSTRUCTIONS: 1. Followup appointment to be on group home rounds by Essence Carlos APRN in 7 to 10 days. 2. Incontinent care. 3. Decubitus precautions. 4. Vital signs daily for one week then weekly. 5. Oxygen saturation b.i.d. for one week then daily. 6. Oxygen at 2L p.r.n. saturation below 90%. 7. Albuterol Nebs 0.042% q.i.d. for 10 days. 8. CBC, CMP in one week then every three months. 9. A1C every three months. 10. TSH, lipids every 6 months. 11. Accu-Checks b.i.d. MEDICATIONS AT DISCHARGE: Tylenol 650 mg p.o. q.4h p.r.n. Hydrocodone Bitart/Acetaminophen (Holcomb 10-325) one tab p.o. b.i.d. p.r.n. Albuterol Sulfate one vial NEB RT q.6h TERESA Furosemide (Lasix) 40 mg p.o. q.d a.c. TERESA Gabapentin (Neurontin) 300 mg p.o. daily TERESA Synthroid 25 mcg p.o. q.d. a.c. TERESA Tradjenta 5 mg p.o. daily TERESA Zestril 2.5 mg p.o. daily TERESA Multivitamin one tab p.o. daily TERESA Aquaphor Healing Ointment 50 gm topical daily TERESA Prilosec 20 mg p.o. q.d a.c. TERESA K-Dur 20 mEq p.o. daily with meal TERESA Effexor 75 mg p.o. daily TERESA Magnesium Hydroxide 30 mL q.72 hr p.r.n. Cholecalciferol (Vitamin D3) 1000 units p.o. daily Tramadol 50 mg p.o. t.i.d. TERESA NEW PRESCRIPTIONS: Ultram 50 mg t.i.d. Holcomb 10-325 mg b.i.d. p.r.n. breakthrough pain for 10 days only Albuterol nebs 0.042% q.i.d. for 10 days DIET INSTRUCTIONS: Consistent carbohydrates, Regular consistency. Regular liquids. ACTIVITY: Up to chair for meals. May participate in activities. Physical and Occupational Therapy Evaluation. SMOKING: N/A DISEASE SPECIFIC EDUCATION: The patient is confused. Discharge discussed with the son, Omid Lord. pain medications discussed with the son, Omid Lord. HOSPITAL COURSE: This is an 81-year-old white female, who is a resident of [facility]. She experienced a fall on 11/22. All nurses stated that she reported she was fine until 11/28 she did not report any pain which she reported pain on the right side in her right lower back. She was brought to the emergency room for evaluation. CT scan revealed multiple rib fractures. She did have some bruising to the ribs. There was no pneumothorax. She was admitted for pain control, placed on Holcomb 10 mg p.o. q.4hr along with Toradol 30 mg IV q.6hr p.r.n. for breakthrough pain. All of her home medications were continued. Her vital signs remained stable. She experienced no respiratory distress. She was given 1 cc Decadron on admission. Her pain has been under control since yesterday. She has started eating again and actually got up and about and actually walked with a walker some. She does have a stable compression fracture of L1 which she has had for some time. Rib fractures broken were on the right 9, 10 and 11. This morning she states she is not in any pain. We will discharge her back to the group home today in stable condition. She is to have PT and OT, be on fall precautions. Will send her back with Ultram 50 mg t.i.d. scheduled as well as Holcomb 10 b.i.d. p.r.n. for breakthrough pain. All of her other medications will remain the same. She does have a history of UTIs. UA was normal. Chest x-ray was normal as far as respiratory status. Today, on day of discharge, sodium 141 , potassium 4, BUN 24, creatinine 1.17, white count 9.6, hemoglobin 11.9, hematocrit 36.5, platelets 151. Her son is present. He is her POA. She does suffer from dementia. She is alert and oriented to person. He is agreeable with discharge and again, she has been stable and pain has been controlled so we will discharge her back to [facility] in stable condition and will follow her closely. TIME SPENT: More than 60 minutes. KALPANA
--- NOTE | 2017-12-04 13:40 | PN ---
CODING FOR BILLING 11/28/17 LEVEL 5 11/29/17 INTERMEDIATE 11/30/17 INTERMEDIATE 12/01/17 DISCHARGE MTDD
== END 2017-12-01 15:05 | DRG 313 ==
LOC: ED 13:10 → MEDSURG B 16:39
PROVIDERS: ADMIT Internal Medicine; ATTEND Internal Medicine
DX: R07.89 Other chest pain (principal); F03.91 Unspecified dementia, unspecified severity, with behavioral disturbance; S22.41XA Multiple fractures of ribs, right side, initial encounter for closed fracture; S32.019A Unspecified fracture of first lumbar vertebra, initial encounter for closed fracture; S20.211A Contusion of right front wall of thorax, initial encounter; E11.9 Type 2 diabetes mellitus without complications; E03.9 Hypothyroidism, unspecified; K57.90 Diverticulosis of intestine, part unspecified, without perforation or abscess without bleeding; K44.9 Diaphragmatic hernia without obstruction or gangrene; I10 Essential (primary) hypertension; F32.9 Major depressive disorder, single episode, unspecified; M19.90 Unspecified osteoarthritis, unspecified site; N18.9 Chronic kidney disease, unspecified; H35.30 Unspecified macular degeneration; W19.XXXA Unspecified fall, initial encounter; Z91.81 History of falling
CPT/HCPCS: 36415; 80053; 81001; 82550; 82553; 82962; 84484; 85025; 85610; 85730; 87081; 87086; 87186; 93005; 93010; 94150; 94640; 99284

== ENCOUNTER 2017-12-19 15:54 | Outpatient (CLI) | payer OTHER | END 2017-12-19 21:07 | LOC: AMBL 15:54 | PROVIDERS: ATTEND Internal Medicine | DX: S00.03XA Contusion of scalp, initial encounter (principal); S01.01XA Laceration without foreign body of scalp, initial encounter; W01.0XXA Fall on same level from slipping, tripping and stumbling without subsequent striking against object, initial encounter; F03.90 Unspecified dementia, unspecified severity, without behavioral disturbance, psychotic disturbance, mood disturbance, and anxiety ==

== ENCOUNTER 2017-12-30 06:54 | Outpatient (CLI) | END 2017-12-30 06:55 | disposition home or self-care (01) | LOC: NONPT 06:54 | PROVIDERS: ATTEND Internal Medicine | DX: N39.0 Urinary tract infection, site not specified (principal) | CPT/HCPCS: 81001; 87086 ==

== ENCOUNTER 2018-04-30 11:47 | Emergency (ER) | payer OTHER ==
[2018-04-30 11:59] VITALS: BP 127/78; TEMP 96.1; BMI 25.8
--- NOTE | 2018-04-30 12:15 | ED.PDOC ---
General ED Provider: Dr. MAMI CARTER Chief Complaint: Fall Stated Complaint: Fell yesterday out of chair-injured Rt side of chest and pelvic region. No bruising of discoloration reported Time Seen by Physician: 12:05 Mode of Arrival: Wheelchair Information Source: Patient, [facility] Primary Care Provider: ALEXANDRO DUMONT Nursing and Triage Documentation Reviewed and Agree: Yes Does patient meet sepsis criteria?: No System Inflammatory Response Syndrome: Not Applicable Sepsis Protocol: For patient's 13 years and over: Temp is 96.8 and below OR 101 and greater Pulse >90 BPM Resp >20/minute Acutely Altered Mental Status Are patient's symptoms suggestive of a new infection, such as: -Pneumonia -Skin, Soft Tissue -Endocarditis -UTI -Bone, Joint Infection -Implantable Device -Acute Abdominal Infection -Wound Infection -Meningitis -Blood Stream Catheter Infection -Unknown Musculoskeletal Complaint Exam - Hip/Pelvis Complaint/Exam Location of Pain: Reports: Right Mechanism of Injury: Reports: Trauma Symptoms Are: Still present Initial Severity: Moderate Current Severity: Mild Location: Reports: Diffuse Character: Reports: Dull, Aching Aggravating: Reports: Movement Alleviating: Reports: Rest Associated Signs and Symptoms: Reports: Swelling Related History: Denies: Similar episode Septic Arthritis Risk Factors: Reports: None Related Surgical History: Reports: None Pelvis Palpation: Stable Tenderness: Present: Right, ASIS, Greater Trochanter, Pubis Range of Motion Limited In: Absent: Flexion, Extension, Abduction, Adduction, Internal rotation, External rotation NV Bundle Intact Distal to Injury: Yes Differential Diagnoses: Contusion, Strain Review of Systems - Review Of Systems Constitutional: Reports: No symptoms Eyes: Reports: No symptoms Ears, Nose, Mouth, Throat: Reports: No symptoms Respiratory: Reports: No symptoms Cardiac: Reports: No symptoms GI: Reports: No symptoms : Reports: No symptoms Musculoskeletal: Reports: No symptoms Skin: Reports: No symptoms Neurological: Reports: No symptoms Endocrine: Reports: No symptoms Hematologic/Lymphatic: Reports: No symptoms All Other Systems: Reviewed and Negative Past Medical History - Past Medical History Endocrine: Reports: DM 2, Hypothyroid Cardiovascular: Reports: Hypertension Respiratory: Reports: None Hematological: Reports: None Gastrointestinal: Reports: Other (Diverticulosis ) Genitourinary: Reports: CKD Neuro/Psych: Reports: Depression, Dementia Musculoskeletal: Reports: None Cancer: Reports: None Last Menstrual Period: NA Other Pertinent Past Medical History: Ataxia - Surgical History General Surgical History: Reports: None - Family History Family History: Reports: None - Social History Smoking Status: Never smoker Hx Substance Use: No Alcohol Screening: None Physical Exam - Physical Exam Appearance: Well-appearing, No pain distress, Well-nourished Eyes: ALMITA, EOMI, Conjunctiva clear ENT: Ears normal, Nose normal, Oropharynx normal Respiratory: Airway patent, Breath sounds clear, Breath sounds equal, Respirations nonlabored Cardiovascular: RRR, Pulses normal, No rub, No murmur GI/: Soft, Nontender, No masses, Bowel sounds normal, No Organomegaly Musculoskeletal: Normal strength, ROM intact, No edema, No calf tenderness Skin: Warm, Dry, Normal color Neurological: Sensation intact, Motor intact, Reflexes intact, Cranial nerves intact, Alert, Oriented Psychiatric: Affect appropriate, Mood appropriate Interpretation - Radiology Interpretation Radiology Results: Negative (ALl images reviewed and fail to reveal abnormalities) Xray Comments: Pelvis, Chest Ribs Critical Care Note - Critical Care Note Total Time (mins): 0 Course - Course Orders, Labs, Meds: Orders Category Date Time Status CHEST, 1V AP ONLY Stat RADS 04/30/18 12:13 Completed FOOT, RIGHT 3 VIEWS Stat RADS 04/30/18 12:13 Completed PELVIS & JEAN HIPS Stat RADS 04/30/18 12:13 Completed RIBS, UNILATERAL RIGHT Stat RADS 04/30/18 12:13 Completed Vital Signs: Temp Pulse Resp BP Pulse Ox 04/30/18 11:50 96.1 F L 73 18 127/78 94 L Departure - Departure Time of Disposition: 15:10 Disposition: HOME SELF-CARE Discharge Problem: Fall, Rib contusion, Hip strain Instructions: Contusion in Adults (ED), Fall Prevention for Older Adults (ED) Condition: Fair Pt referred to PMD for follow-up: Yes IPMP verified?: No Additional Instructions: Ice to areas of discomfort for 20 min bid Avoid strenuous activity Tylenol for pain Allergies/Adverse Reactions: Allergies citalopram [From Celexa] Adverse Reaction (Verified 04/30/18 12:15) escitalopram [From Lexapro] Adverse Reaction (Verified 04/30/18 12:15) oxaprozin [From Daypro] Adverse Reaction (Verified 04/30/18 12:15) paroxetine [From Paxil] Adverse Reaction (Verified 04/30/18 12:15) Penicillins Adverse Reaction (Verified 04/30/18 12:15) zolpidem [From Ambien] Adverse Reaction (Verified 04/30/18 12:15) Home Medications: Ambulatory Orders Furosemide [Lasix] 40 mg PO DAILY 11/15/16 Gabapentin 300 mg PO DAILY 11/15/16 Levothyroxine Sodium [Synthroid] 25 mcg PO DAILY 11/15/16 Linagliptin [Tradjenta] 5 mg PO DAILY 11/15/16 Multivitamin [Multi-Vitamin Daily] 1 tab PO DAILY 11/15/16 Omeprazole 20 mg PO DAILY 11/15/16 Venlafaxine HCl [Effexor] 75 mg PO DAILY 11/15/16 Potassium Chloride [K-Dur] 20 meq PO DAILY #30 tab 11/21/16 Acetaminophen 650 mg PO Q4H PRN 06/21/17 Cholecalciferol (Vitamin D3) [Vitamin D3] 1,000 unit PO DAILY 06/21/17 Lisinopril [Zestril] 2.5 mg PO DAILY 11/28/17 Magnesium Hydroxide [Milk of Magnesia] 30 ml PO Q72H PRN 11/28/17 Tramadol HCl [Ultram] 50 mg PO TID #90 tablet 12/01/17 Docusate Sodium 100 mg PO DAILY 04/30/18 Disposition Discussed With: Patient, Other (caregiver)
--- NOTE | 2018-04-30 14:09 | DI ---
EXAM: CHEST FRONTAL VIEW HISTORY: Injury. COMPARISON: 12/01/2017 FINDINGS: Prominent heart size is stable. Ectasia of the aorta. Large hiatal hernia. Lungs are gr ossly clear. No pneumothorax or visible pleural fluid. No acute bony deformity or fracture IMPRESSION: 1. No acute injuries identified.
--- NOTE | 2018-04-30 14:11 | DI ---
EXAM: Pelvis AP view, bilateral hips AP and lateral views HISTORY: Fall, injury. FINDINGS: Bones appear demineralized. No displaced fracture or joint dislocation is identified. The re is mild to moderate arthropathy of the sacroiliac joints and hips. Degenerative changes of the lo wer spine. No soft tissue finding. IMPRESSION: 1. No fracture or dislocation is identified.
--- NOTE | 2018-04-30 14:13 | DI ---
EXAM: Two views of the right ribs HISTORY: Right rib and chest wall pain. COMPARISON: CT chest 11/28/2017 FINDINGS: There is a posterior angulated fracture of the posterior tenth rib findings are consistent with prior CT chest healing fractures. There is an adjacent nondisplaced healing rib fracture at the ninth and eleventh ribs. There is no new fracture. IMPRESSION: 1. No acute rib fracture. 2. Healed fractures of the 9th through 11th ribs.
--- NOTE | 2018-04-30 14:15 | DI ---
EXAM: Three views of the right foot HISTORY: Fall with injury. COMPARISON: none FINDINGS: There is severe angulation/hallux valgus deformity of the first MTP joint with narrowing an d osteophyte formation. There is medial angulation of the second toe MTP joint. No displaced fractu re is identified. The arch is maintained. Plantar heel spur is present. Soft tissues are unremarka ble. IMPRESSION: 1. No acute compression fracture or subluxation. 2. Severe hallux valgus deformity of the first MTP joint. 2. Degenerative change with medial angulation of the second MTP joint.
== END 2018-04-30 16:14 | disposition home or self-care (01) ==
LOC: ED 11:47
DX: S20.211A Contusion of right front wall of thorax, initial encounter (principal); S76.011A Strain of muscle, fascia and tendon of right hip, initial encounter; W07.XXXA Fall from chair, initial encounter
CPT/HCPCS: 99283